=== PATIENT | male | born 1950 | race Caucasian/White ===

== ENCOUNTER 2020-01-01 10:55 | Emergency (ER) | payer OTHER ==
[~2020-01-01] VITALS: Ht 177.8 cm; Wt 77.1 kg
[2020-01-01] MEDS ORDERED: TETANUS,DIPTH,PERTUSS P/F (BOOSTRIX) 0.5 ML VIAL IM ONE (11:15)
[2020-01-01 11:20] LABS: HEMOGLOBIN 14.4 G/DL (13.3-17.7); MEAN PLATELET VOLUME 9.6 FL (7.4-10.4); RED CELL DISTRIBUTION WIDTH 13.5 % (10.0-14.5); WHITE BLOOD COUNT 10.3 10^3/uL (4.3-11.0)
[2020-01-01 11:23] LABS: CHLORIDE 109 MMOL/L (98-107); POTASSIUM 3.8 MMOL/L (3.6-5.0); SODIUM 139 MMOL/L (135-145)
[2020-01-01 11:24] LABS: CALCIUM 9.7 MG/DL (8.5-10.1)
[2020-01-01 11:26] LABS: GLUCOSE 114 MG/DL (70-105); TOTAL PROTEIN 7.2 GM/DL (6.4-8.2)
[2020-01-01 11:27] LABS: BILIRUBIN,TOTAL 0.9 MG/DL (0.1-1.0); CARBON DIOXIDE 20 MMOL/L (21-32)
[2020-01-01 11:29] LABS: ALKALINE PHOSPHATASE 65 U/L (40-136); CREATININE SERUM 0.94 MG/DL (0.60-1.30); GFR ESTIMATED > 60
[2020-01-01 11:30] LABS: BUN/CREATININE RATIO 19
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
[2020-01-01 11:31] LABS: BILIRUBIN,DIRECT 0.3 MG/DL (0.0-0.3); BILIRUBIN,INDIRECT 0.6 MG/DL
[2020-01-01 11:32] LABS: ALANINE AMINOTRANSFERASE 17 U/L (0-55)
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
[2020-01-01] MEDS ORDERED: IOHEXOL 350 MG/ML 100 ML (OMNIPAQUE 350) VIAL IV ONE (12:00)
[2020-01-01] MEDS ORDERED: NS 100 ML (IVPB) BAG IV ONE (12:00)
[2020-01-01] MEDS ORDERED: HOLD METFORMIN - RECEIVED CONTRAST 20 ML VIAL IV SCH (12:00)
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
--- OUTSIDE RECORDS SUMMARY | 2020-01-01 12:52 | XMS REPORT | Clinical Summary ---
Author Author Admin, Ken Walsh [employer]prospe[employer] Address Unknown Phone Unavailable Allergies, Adverse Reactions, Alerts Allergy Name Reaction Description Start Date Severity Status Pr ovider VERAPAMIL Critical Active Crispin العلي on SERTRALINE HCL Critical Active Crispin drake MD IBUPROFEN Critical Active Crispin العلي on NICOTINE STEP 1 Critical Active Crispin valerio MD NAPROXEN SODIUM Critical Active Crispin valerio MD SUDAFED Critical Active Crispin mcmahon MD Conditions or Problems Problem Name Problem Code Onset Date Status Entry Date Provider Comment Standard Description Annotate Renal calculus 592.0 Active Crispin Smith MD Calculus of kidney [facility] Active Crispin Smith MD Hypertrophy (benign) of prostate without urinary obstruction and other lower urinary tract (LUTS) Incomplete Bladder Emptying Active Crispin Smith MD Retention of urine, unspecified Inguinal hernia, left 550.90 Active Rick reyes MD Unilateral or unspecified inguinal hernia, without mention of obstruction or gangrene (not specified as recurrent) Body Mass Index 25.0-25.9 Adult Refinement 2017 Crispin Smith MD Body Mass Index 25.0-25.9, adult BMI 24-24.9 Active Crispin Smith MD Body Mass Index 25.0-25.9, adult Encounter for screening for malignant neoplasm of colon Active Rick Cutler MD Screening for malignant neopla sms of colon Medication List Medication Instructions Start Date Stop Date Generic Name NDC Status Provider Patient Instruction CYPROHEPTADINE HCL 4 MG ORAL TABLET 1/2 tab by mouth at bedt melissa fpr frequency CYPROHEPTADINE HCL 33739995156 No Longer Active Rick Cutler MD Active VITAMIN D (CHOLECALCIFEROL) 1000 UNIT ORAL CAPSULE 1 cap by mouth daily CHOLECALCIFEROL 95541187539 Active Crispin Smith MD Active HYDROCHLOROTHIAZIDE 25 MG ORAL TABLET 1/2 tablet by mouth daily HYDROCHLOROTHIAZIDE 58579435990 No Longer Active Crispin Smith MD Active BACLOFEN 10 MG ORAL TABLET 1 tab by mouth three times daily BACLOFEN 74544343298 Active Crispin Smith MD Active TEGRETOL-XR 200 MG ORAL TABLET EXTENDED RELEASE 12 CHRISTIANO R 1 tab by mouth twice daily CARBAMAZEPINE 83937946247 Active Crispni Smith MD Active LORATADINE 10 MG ORAL TABLET 1 tablet by mouth daily LORATADINE 31182093252 Active Crispin Smith MD Active CITALOPRAM HYDROBROMIDE 10 MG ORAL TABLET 1 qDay CITALOPRAM HYDROBROMIDE 36403607703 No Longer Active Crispin Smith MD Active GABAPENTIN 300 MG ORAL CAPSULE by mouth twice a day GABAPENTIN 75813074016 Active Rick Cutler MD Active FLOMAX 0.4 MG ORAL CAPSULE 1 Daily TAMSULOSI N HCL 26572595849 No Longer Active Cripsin Smith MD Active LISINOPRIL 20 MG ORAL TABLET 1 tablet by mouth daily LISINOPRIL 51112198247 Active Crispin Smith MD Active ALPRAZOLAM 0.25 MG ORAL TABLET 1 tablet by mouth twice a day as needed for stress ALPRAZOLAM 45896275797 Active Crispin Smith MD Active FLOMAX 0.4 MG ORAL CAPSULE 1 Daily F MADINA 0.4 MG ORAL CAPSULE 550171 TAMSULOSIN HCL Inactive CITALOPRAM HYDROBROMIDE 10 MG ORAL TABLET 1 qDay CITALOPRAM HYDROBROMIDE 10 MG ORAL TABLET 871770 CITALOPRAM HYDROBR OMIDE Inactive HYDROCHLOROTHIAZIDE 25 MG ORAL TABLET 1/2 tablet by mouth daily HYDROCHLOROTHIAZIDE 25 MG ORAL TABLET 313700 HYDROCHLOR OTHIAZIDE Inactive CYPROHEPTADINE HCL 4 MG ORAL TABLET 1/2 tab by mouth at bedt melissa fpr frequency CYPROHEPTADINE HCL 4 MG ORAL TABLET 815304 CYPROHEPTADINE HCL Inactive Encounters Code Encounter Date Provider Facility CPT-20964 Level 3 Est. Patient 20:05:12 CDT Crispin valerio MD [facility] CPT-17822 Level 3 Est. Patient 19:42:30 CDT Crispin valerio MD [facility] CPT-93308 Level 4 Est. Patient 14:47:35 CDT Rick singh MD [facility] CPT-21929 Level 2 Est. Patient 15:53:54 CDT Crispin valerio MD [facility] CPT-82603 Level 3 Est. Patient 20:49:21 CDT Crispin valerio MD [facility] Procedures Code Procedure Name Date Entry Date Standard Desc ription CPT-23173 Abdomen, 1 view 11:25:17 CDT CPT-78474 No Charge Offi Visit 12:45:26 CDT 3 CPT-86809 Postop F/U Visit 12:24:03 CDT CPT-48455 Abdomen, 1 view 10:02:40 CDT CPT-15923 Postop F/U Visit 17:29:32 CDT CPT-94335 Abdomen, 1 view 13:47:34 CDT CPT-52173 Abdomen, 1 view 13:56:21 CDT CPT-63586 Postop F/U Visit 10:40:02 CDT CPT-71758 Bladder Scan 15:53:55 CDT CPT-19584 Bladder Scan 10:11:31 CDT CPT-53951 Postop F/U Visit 10:11:30 CDT CPT-59240 Cystoscopy 20:49:21 CDT CPT-38993 Abd single AP View - XRAY USE ONLY 12:03:21 CDT
--- OUTSIDE RECORDS SUMMARY | 2020-01-01 12:52 | XMS REPORT | Clinical Summary ---
Author Author Admin, Ken Walsh [employer] Address Unknown Phone Unavailable Allergies, Adverse Reactions, [...] at bedt melissa fpr frequency CYPROHEPTADINE HCL 41618958012 No Longer Active Rick Cutler MD Active VITAMIN D (CHOLECALCIFEROL) 1000 UNIT ORAL CAPSULE 1 cap by mouth daily CHOLECALCIFEROL 03203264259 Active Crispin Smith MD Active HYDROCHLOROTHIAZIDE 25 MG ORAL TABLET 1/2 tablet by mouth daily HYDROCHLOROTHIAZIDE 48757230386 No Longer Active Crispin Smith MD Active BACLOFEN 10 MG ORAL TABLET 1 tab by mouth three times daily BACLOFEN 54305743978 Active Crispin Smith MD Active TEGRETOL-XR 200 MG ORAL TABLET EXTENDED RELEASE 12 CHRISTIANO R 1 tab by mouth twice daily CARBAMAZEPINE 37359378734 Active Crispin Smith MD Active LORATADINE 10 MG ORAL TABLET 1 tablet by mouth daily LORATADINE 33223314040 Active Crispin Smith MD Active CITALOPRAM HYDROBROMIDE 10 MG ORAL TABLET 1 qDay CITALOPRAM HYDROBROMIDE 35149938499 No Longer Active Crispin Smith MD Active GABAPENTIN 300 MG ORAL CAPSULE by mouth twice a day GABAPENTIN 74836994844 Active Rick Cutler MD Active FLOMAX 0.4 MG ORAL CAPSULE 1 Daily TAMSULOSI N HCL 72076602259 No Longer Active Crispin Smith MD Active LISINOPRIL 20 MG ORAL TABLET 1 tablet by mouth daily LISINOPRIL 16964638191 Active Crispin Smith MD Active ALPRAZOLAM 0.25 MG ORAL TABLET 1 tablet by mouth twice a day as needed for stress ALPRAZOLAM 90514932547 Active Crispin Smith MD Active FLOMAX 0.4 MG ORAL CAPSULE 1 Daily F MADINA 0.4 MG ORAL CAPSULE 329250 TAMSULOSIN HCL Inactive CITALOPRAM HYDROBROMIDE 10 MG ORAL TABLET 1 qDay CITALOPRAM HYDROBROMIDE 10 MG ORAL TABLET 703029 CITALOPRAM HYDROBR OMIDE Inactive HYDROCHLOROTHIAZIDE 25 MG ORAL TABLET 1/2 tablet by mouth daily HYDROCHLOROTHIAZIDE 25 MG ORAL TABLET 288470 HYDROCHLOR OTHIAZIDE Inactive CYPROHEPTADINE HCL 4 MG ORAL TABLET 1/2 tab by mouth at bedt melissa fpr frequency CYPROHEPTADINE HCL 4 MG ORAL TABLET 966167 CYPROHEPTADINE HCL Inactive Vital Signs Date Name Value Unit Range Description blood pressure, diastolic, repeated by physician 94 BP funk blood pressure, diastolic 94 mm[Hg] BP funk blood pressure, systolic, repeated by physician 156 BP sys blood pressure, systolic 156 mm[Hg] BP sys height E&M 69 [in_us] Bdy height pulse rate E&M 86 /min Heart rate temperature E&M 96.7 [degF] Body temp erature weight E&M 168.20 [lb_av] Weight Measure d Encounters Code Encounter Date Provider Facility CPT-20401 Level 3 Est. Patient 20:05:12 CDT Crispin valerio MD [facility] CPT-65073 Level 3 Est. Patient 19:42:30 CDT Crispin valerio MD [facility] CPT-91713 Level 4 Est. Patient 14:47:35 CDT iRck singh MD [facility] CPT-82624 Level 2 Est. Patient 15:53:54 CDT Crispin valerio MD [facility] CPT-19827 Level 3 Est. Patient 20:49:21 CDT Crispin valerio MD [facility] Procedures Code Procedure Name Date Entry Date Standard Desc ription CPT-95515 Abdomen, 1 view 11:25:17 CDT CPT-38702 No Charge Offi Visit 12:45:26 CDT 3 CPT-86731 Postop F/U Visit 12:24:03 CDT CPT-22464 Abdomen, 1 view 10:02:40 CDT CPT-12449 Postop F/U Visit 17:29:32 CDT CPT-44156 Abdomen, 1 view 13:47:34 CDT CPT-34367 Abdomen, 1 view 13:56:21 CDT CPT-47409 Postop F/U Visit 10:40:02 CDT CPT-57830 Bladder Scan 15:53:55 CDT CPT-91626 Bladder Scan 10:11:31 CDT CPT-12233 Postop F/U Visit 10:11:30 CDT CPT-70559 Cystoscopy 20:49:21 CDT CPT-73595 Abd single AP View - XRAY USE ONLY 12:03:21 CDT
--- OUTSIDE RECORDS SUMMARY | 2020-01-01 12:52 | XMS REPORT | Clinical Summary ---
Author Author Admin, Ken Walsh [email or web address] Address Unknown Phone Unavailable Allergies, Adverse Reactions, [...] as recurrent) Body Mass Index 25.0-25.9 Adult Active 2017 Crispin Smith MD Body Mass Index 25.0-25.9, adult Encounter for screening for malignant neoplasm of colon Active Rick Cutler MD Screening for malignant neopla sms of colon Medication List Medication Instructions Start Date Stop Date Generic Name NDC Status Provider Patient Instruction CYPROHEPTADINE HCL 4 MG ORAL TABLET 1/2 tab by mouth at bedt melissa fpr frequency CYPROHEPTADINE HCL 81485439436 No Longer Active Rick Cutler MD Active VITAMIN D (CHOLECALCIFEROL) 1000 UNIT ORAL CAPSULE 1 cap by mouth daily CHOLECALCIFEROL 74776960561 Active Crispin Smith MD Active HYDROCHLOROTHIAZIDE 25 MG ORAL TABLET 1/2 tablet by mouth daily HYDROCHLOROTHIAZIDE 48953775751 No Longer Active Crispin Smith MD Active BACLOFEN 10 MG ORAL TABLET 1 tab by mouth three times daily BACLOFEN 08965239905 Active Crispin Smith MD Active TEGRETOL-XR 200 MG ORAL TABLET EXTENDED RELEASE 12 CHRISTIANO R 1 tab by mouth twice daily CARBAMAZEPINE 99035193832 Active Crispin Smith MD Active LORATADINE 10 MG ORAL TABLET 1 tablet by mouth daily LORATADINE 08474356775 Active Crispin Smith MD Active CITALOPRAM HYDROBROMIDE 10 MG ORAL TABLET 1 qDay CITALOPRAM HYDROBROMIDE 01536617306 No Longer Active Crispin Smith MD Active GABAPENTIN 300 MG ORAL CAPSULE by mouth twice a day GABAPENTIN 37966529675 Active Rick Cutler MD Active FLOMAX 0.4 MG ORAL CAPSULE 1 Daily TAMSULOSI N HCL 65300200139 No Longer Active Crispin Smith MD Active LISINOPRIL 20 MG ORAL TABLET 1 tablet by mouth daily LISINOPRIL 15323360609 Active Crispin Smith MD Active ALPRAZOLAM 0.25 MG ORAL TABLET 1 tablet by mouth twice a day as needed for stress ALPRAZOLAM 40971718012 Active Crispin Smith MD Active FLOMAX 0.4 MG ORAL CAPSULE 1 Daily F MADINA 0.4 MG ORAL CAPSULE 969780 TAMSULOSIN HCL Inactive CITALOPRAM HYDROBROMIDE 10 MG ORAL TABLET 1 qDay CITALOPRAM HYDROBROMIDE 10 MG ORAL TABLET 893179 CITALOPRAM HYDROBR OMIDE Inactive HYDROCHLOROTHIAZIDE 25 MG ORAL TABLET 1/2 tablet by mouth daily HYDROCHLOROTHIAZIDE 25 MG ORAL TABLET 090743 HYDROCHLOR OTHIAZIDE Inactive CYPROHEPTADINE HCL 4 MG ORAL TABLET 1/2 tab by mouth at bedt melissa fpr frequency CYPROHEPTADINE HCL 4 MG ORAL TABLET 846237 CYPROHEPTADINE HCL Inactive Encounters Code Encounter Date Provider Facility CPT-53219 Level 3 Est. Patient 19:42:30 CDT Crispin valerio MD [facility] CPT-48934 Level 4 Est. Patient 14:47:35 CDT Rick singh MD [facility] CPT-58558 Level 2 Est. Patient 15:53:54 CDT Crispin valerio MD [facility] CPT-01578 Level 3 Est. Patient 20:49:21 CDT Crispin valerio [facility] Procedures Code Procedure Name Date Entry Date Standard Desc ription CPT-24469 Abdomen, 1 view 11:25:17 CDT CPT-00466 No Charge Offi Visit 12:45:26 CDT 3 CPT-72713 Postop F/U Visit 12:24:03 CDT CPT-26158 Abdomen, 1 view 10:02:40 CDT CPT-16168 Postop F/U Visit 17:29:32 CDT CPT-18320 Abdomen, 1 view 13:47:34 CDT CPT-91122 Abdomen, 1 view 13:56:21 CDT CPT-28977 Postop F/U Visit 10:40:02 CDT CPT-83307 Bladder Scan 15:53:55 CDT CPT-99014 Bladder Scan 10:11:31 CDT CPT-34060 Postop F/U Visit 10:11:30 CDT CPT-78639 Cystoscopy 20:49:21 CDT CPT-36039 Abd single AP View - XRAY USE ONLY 12:03:21 CDT
--- OUTSIDE RECORDS SUMMARY | 2020-01-01 12:52 | XMS REPORT | Clinical Summary ---
Author Author Admin, Ken Walsh [employer] Address Unknown Phone Unavailable Allergies, Adverse Reactions, Alerts Allergy Name Reaction Description Start Date Severity Status Pr ovider VERAPAMIL Critical Active Crispin العلي on SERTRALINE HCL Critical Active Crispin drake MD IBUPROFEN Critical Active Crispin العلي on NICOTINE STEP 1 Critical Active Crispin valerio MD NAPROXEN SODIUM Critical Active Cripsin valerio MD SUDAFED Critical Active Crispin mcmahon [...] at bedt melissa fpr frequency CYPROHEPTADINE HCL 52653955488 No Longer Active Rick Cutler MD Active VITAMIN D (CHOLECALCIFEROL) 1000 UNIT ORAL CAPSULE 1 cap by mouth daily CHOLECALCIFEROL 09662156114 Active Crispin Smith MD Active HYDROCHLOROTHIAZIDE 25 MG ORAL TABLET 1/2 tablet by mouth daily HYDROCHLOROTHIAZIDE 90190453027 No Longer Active Crispin Smith MD Active BACLOFEN 10 MG ORAL TABLET 1 tab by mouth three times daily BACLOFEN 88291717134 Active Crispin Smith MD Active TEGRETOL-XR 200 MG ORAL TABLET EXTENDED RELEASE 12 CHRISTIANO R 1 tab by mouth twice daily CARBAMAZEPINE 51123069547 Active Crispin Smith MD Active LORATADINE 10 MG ORAL TABLET 1 tablet by mouth daily LORATADINE 76661605179 Active Crispin Smith MD Active CITALOPRAM HYDROBROMIDE 10 MG ORAL TABLET 1 qDay CITALOPRAM HYDROBROMIDE 62753491865 No Longer Active Crispin Smith MD Active GABAPENTIN 300 MG ORAL CAPSULE by mouth twice a day GABAPENTIN 62842885995 Active Rick Cutler MD Active FLOMAX 0.4 MG ORAL CAPSULE 1 Daily TAMSULOSI N HCL 14540770059 No Longer Active Crispin Smith MD Active LISINOPRIL 20 MG ORAL TABLET 1 tablet by mouth daily LISINOPRIL 13021460580 Active Crispin Smith MD Active ALPRAZOLAM 0.25 MG ORAL TABLET 1 tablet by mouth twice a day as needed for stress ALPRAZOLAM 72842772506 Active Crispin Smith MD Active FLOMAX 0.4 MG ORAL CAPSULE 1 Daily F MADINA 0.4 MG ORAL CAPSULE 061230 TAMSULOSIN HCL Inactive CITALOPRAM HYDROBROMIDE 10 MG ORAL TABLET 1 qDay CITALOPRAM HYDROBROMIDE 10 MG ORAL TABLET 971293 CITALOPRAM HYDROBR OMIDE Inactive HYDROCHLOROTHIAZIDE 25 MG ORAL TABLET 1/2 tablet by mouth daily HYDROCHLOROTHIAZIDE 25 MG ORAL TABLET 788579 HYDROCHLOR OTHIAZIDE Inactive CYPROHEPTADINE HCL 4 MG ORAL TABLET 1/2 tab by mouth at bedt melissa fpr frequency CYPROHEPTADINE HCL 4 MG ORAL TABLET 847099 CYPROHEPTADINE HCL Inactive Vital Signs Date Name [...] d Encounters Code Encounter Date Provider Facility CPT-93460 Level 3 Est. Patient 20:05:12 CDT Crispin valerio MD [facility] CPT-96389 Level 3 Est. Patient 19:42:30 CDT Crispin valerio MD [facility] CPT-87830 Level 4 Est. Patient 14:47:35 CDT Rick singh MD [facility] CPT-92730 Level 2 Est. Patient 15:53:54 CDT Crispin valerio MD [facility] CPT-16202 Level 3 Est. Patient 20:49:21 CDT Crispin valerio MD [facility] Procedures Code Procedure Name Date Entry Date Standard Desc ription CPT-49667 Abdomen, 1 view 11:25:17 CDT CPT-03509 No Charge Offi Visit 12:45:26 CDT 3 CPT-02049 Postop F/U Visit 12:24:03 CDT CPT-82788 Abdomen, 1 view 10:02:40 CDT CPT-26687 Postop F/U Visit 17:29:32 CDT CPT-87238 Abdomen, 1 view 13:47:34 CDT CPT-75799 Abdomen, 1 view 13:56:21 CDT CPT-41725 Postop F/U Visit 10:40:02 CDT CPT-80411 Bladder Scan 15:53:55 CDT CPT-73614 Bladder Scan 10:11:31 CDT CPT-63624 Postop F/U Visit 10:11:30 CDT CPT-33241 Cystoscopy 20:49:21 CDT CPT-18494 Abd single AP View - XRAY USE ONLY 12:03:21 CDT
--- OUTSIDE RECORDS SUMMARY | 2020-01-01 12:52 | XMS REPORT | Clinical Summary ---
Author Author Admin, Ken Walsh [employer] Address Unknown Phone Unavailable Allergies, Adverse Reactions, [...] at bedt melissa fpr frequency CYPROHEPTADINE HCL 60022048330 No Longer Active Rick Cutler MD Active VITAMIN D (CHOLECALCIFEROL) 1000 UNIT ORAL CAPSULE 1 cap by mouth daily CHOLECALCIFEROL 13757058944 Active Crispin Smith MD Active HYDROCHLOROTHIAZIDE 25 MG ORAL TABLET 1/2 tablet by mouth daily HYDROCHLOROTHIAZIDE 97161973615 No Longer Active Crispin Smith MD Active BACLOFEN 10 MG ORAL TABLET 1 tab by mouth three times daily BACLOFEN 35010613369 Active Crispin Smith MD Active TEGRETOL-XR 200 MG ORAL TABLET EXTENDED RELEASE 12 CHRISTIANO R 1 tab by mouth twice daily CARBAMAZEPINE 95261677893 Active Crispin Smith MD Active LORATADINE 10 MG ORAL TABLET 1 tablet by mouth daily LORATADINE 13426824433 Active Crispin Smith MD Active CITALOPRAM HYDROBROMIDE 10 MG ORAL TABLET 1 qDay CITALOPRAM HYDROBROMIDE 75063011629 No Longer Active Crispin Smith MD Active GABAPENTIN 300 MG ORAL CAPSULE by mouth twice a day GABAPENTIN 98028071751 Active Rick Cutler MD Active FLOMAX 0.4 MG ORAL CAPSULE 1 Daily TAMSULOSI N HCL 59326616251 No Longer Active Crispin Smith MD Active LISINOPRIL 20 MG ORAL TABLET 1 tablet by mouth daily LISINOPRIL 79658789369 Active Crispin Smith MD Active ALPRAZOLAM 0.25 MG ORAL TABLET 1 tablet by mouth twice a day as needed for stress ALPRAZOLAM 62956424871 Active Crispin Smith MD Active FLOMAX 0.4 MG ORAL CAPSULE 1 Daily F MADINA 0.4 MG ORAL CAPSULE 770544 TAMSULOSIN HCL Inactive CITALOPRAM HYDROBROMIDE 10 MG ORAL TABLET 1 qDay CITALOPRAM HYDROBROMIDE 10 MG ORAL TABLET 274840 CITALOPRAM HYDROBR OMIDE Inactive HYDROCHLOROTHIAZIDE 25 MG ORAL TABLET 1/2 tablet by mouth daily HYDROCHLOROTHIAZIDE 25 MG ORAL TABLET 055871 HYDROCHLOR OTHIAZIDE Inactive CYPROHEPTADINE HCL 4 MG ORAL TABLET 1/2 tab by mouth at bedt melissa fpr frequency CYPROHEPTADINE HCL 4 MG ORAL TABLET 559184 CYPROHEPTADINE HCL Inactive Encounters Code Encounter Date Provider Facility CPT-44939 Level 3 Est. Patient 20:05:12 CDT Crispin valerio MD [facility] CPT-88636 Level 3 Est. Patient 19:42:30 CDT Crispin valerio MD [facility] CPT-56975 Level 4 Est. Patient 14:47:35 CDT Rick singh MD [facility] CPT-52602 Level 2 Est. Patient 15:53:54 CDT Crispin valerio MD [facility] CPT-19406 Level 3 Est. Patient 20:49:21 CDT Crispin valerio MD [facility] Procedures Code Procedure Name Date Entry Date Standard Desc ription CPT-73848 Abdomen, 1 view 11:25:17 CDT CPT-16019 No Charge Offi Visit 12:45:26 CDT 3 CPT-75089 Postop F/U Visit 12:24:03 CDT CPT-06787 Abdomen, 1 view 10:02:40 CDT CPT-48626 Postop F/U Visit 17:29:32 CDT CPT-60166 Abdomen, 1 view 13:47:34 CDT CPT-54375 Abdomen, 1 view 13:56:21 CDT CPT-19301 Postop F/U Visit 10:40:02 CDT CPT-72215 Bladder Scan 15:53:55 CDT CPT-57780 Bladder Scan 10:11:31 CDT CPT-60512 Postop F/U Visit 10:11:30 CDT CPT-02902 Cystoscopy 20:49:21 CDT CPT-13265 Abd single AP View - XRAY USE ONLY 12:03:21 CDT
--- OUTSIDE RECORDS SUMMARY | 2020-01-01 12:52 | XMS REPORT | Clinical Summary ---
Author Author Admin, Ken Walsh [employer] Address Unknown Phone Unavailable Allergies, Adverse Reactions, [...] at bedt melissa fpr frequency CYPROHEPTADINE HCL 79541755796 No Longer Active Rick Cutler MD Active VITAMIN D (CHOLECALCIFEROL) 1000 UNIT ORAL CAPSULE 1 cap by mouth daily CHOLECALCIFEROL 32816529493 Active Crispin Smith MD Active HYDROCHLOROTHIAZIDE 25 MG ORAL TABLET 1/2 tablet by mouth daily HYDROCHLOROTHIAZIDE 77864129020 No Longer Active Crispin Smith MD Active BACLOFEN 10 MG ORAL TABLET 1 tab by mouth three times daily BACLOFEN 67708196660 Active Crispin Smith MD Active TEGRETOL-XR 200 MG ORAL TABLET EXTENDED RELEASE 12 CHRISTIANO R 1 tab by mouth twice daily CARBAMAZEPINE 42024751155 Active Crispin Smith MD Active LORATADINE 10 MG ORAL TABLET 1 tablet by mouth daily LORATADINE 35313192788 Active Crispin Smith MD Active CITALOPRAM HYDROBROMIDE 10 MG ORAL TABLET 1 qDay CITALOPRAM HYDROBROMIDE 08710846020 No Longer Active Crispin Smith MD Active GABAPENTIN 300 MG ORAL CAPSULE by mouth twice a day GABAPENTIN 38995498725 Active Rick Cutler MD Active FLOMAX 0.4 MG ORAL CAPSULE 1 Daily TAMSULOSI N HCL 64866976478 No Longer Active Crispin Smith MD Active LISINOPRIL 20 MG ORAL TABLET 1 tablet by mouth daily LISINOPRIL 37114164718 Active Crispin Smith MD Active ALPRAZOLAM 0.25 MG ORAL TABLET 1 tablet by mouth twice a day as needed for stress ALPRAZOLAM 65111264534 Active Crispin Smith MD Active FLOMAX 0.4 MG ORAL CAPSULE 1 Daily F MADINA 0.4 MG ORAL CAPSULE 092943 TAMSULOSIN HCL Inactive CITALOPRAM HYDROBROMIDE 10 MG ORAL TABLET 1 qDay CITALOPRAM HYDROBROMIDE 10 MG ORAL TABLET 386349 CITALOPRAM HYDROBR OMIDE Inactive HYDROCHLOROTHIAZIDE 25 MG ORAL TABLET 1/2 tablet by mouth daily HYDROCHLOROTHIAZIDE 25 MG ORAL TABLET 105160 HYDROCHLOR OTHIAZIDE Inactive CYPROHEPTADINE HCL 4 MG ORAL TABLET 1/2 tab by mouth at bedt melissa fpr frequency CYPROHEPTADINE HCL 4 MG ORAL TABLET 097993 CYPROHEPTADINE HCL Inactive Vital Signs Date Name [...] d Encounters Code Encounter Date Provider Facility CPT-47135 Level 3 Est. Patient 20:05:12 CDT Crispin valerio MD [facility] CPT-97997 Level 3 Est. Patient 19:42:30 CDT Crispin valerio MD [facility] CPT-76109 Level 4 Est. Patient 14:47:35 CDT Rick singh MD [facility] CPT-06765 Level 2 Est. Patient 15:53:54 CDT Crispin valerio MD [facility] CPT-25885 Level 3 Est. Patient 20:49:21 CDT Crispin valerio MD [facility] Procedures Code Procedure Name Date Entry Date Standard Desc ription CPT-53634 Abdomen, 1 view 11:25:17 CDT CPT-75810 No Charge Offi Visit 12:45:26 CDT 3 CPT-15374 Postop F/U Visit 12:24:03 CDT CPT-90057 Abdomen, 1 view 10:02:40 CDT CPT-63604 Postop F/U Visit 17:29:32 CDT CPT-73843 Abdomen, 1 view 13:47:34 CDT CPT-60052 Abdomen, 1 view 13:56:21 CDT CPT-76470 Postop F/U Visit 10:40:02 CDT CPT-35627 Bladder Scan 15:53:55 CDT CPT-04414 Bladder Scan 10:11:31 CDT CPT-46863 Postop F/U Visit 10:11:30 CDT CPT-19301 Cystoscopy 20:49:21 CDT CPT-74788 Abd single AP View - XRAY USE ONLY 12:03:21 CDT
--- OUTSIDE RECORDS SUMMARY | 2020-01-01 12:52 | XMS REPORT | Clinical Summary ---
Author Author Admin, Ken Walsh [employer] Address Unknown Phone Unavailable Allergies, Adverse Reactions, [...] at bedt melissa fpr frequency CYPROHEPTADINE HCL 00180992655 No Longer Active Rick Cutler MD Active VITAMIN D (CHOLECALCIFEROL) 1000 UNIT ORAL CAPSULE 1 cap by mouth daily CHOLECALCIFEROL 83612172126 Active Crispin Smith MD Active HYDROCHLOROTHIAZIDE 25 MG ORAL TABLET 1/2 tablet by mouth daily HYDROCHLOROTHIAZIDE 38085146933 No Longer Active Crispin Smith MD Active BACLOFEN 10 MG ORAL TABLET 1 tab by mouth three times daily BACLOFEN 97896161999 Active Crispin Smith MD Active TEGRETOL-XR 200 MG ORAL TABLET EXTENDED RELEASE 12 CHRISTIANO R 1 tab by mouth twice daily CARBAMAZEPINE 91494828087 Active Crispin Smith MD Active LORATADINE 10 MG ORAL TABLET 1 tablet by mouth daily LORATADINE 95838201364 Active Crispin Smith MD Active CITALOPRAM HYDROBROMIDE 10 MG ORAL TABLET 1 qDay CITALOPRAM HYDROBROMIDE 29679487337 No Longer Active Crispin Smith MD Active GABAPENTIN 300 MG ORAL CAPSULE by mouth twice a day GABAPENTIN 11534977626 Active Rick Cutler MD Active FLOMAX 0.4 MG ORAL CAPSULE 1 Daily TAMSULOSI N HCL 53739253920 No Longer Active Crispin Smith MD Active LISINOPRIL 20 MG ORAL TABLET 1 tablet by mouth daily LISINOPRIL 81279271409 Active Crispin Smith MD Active ALPRAZOLAM 0.25 MG ORAL TABLET 1 tablet by mouth twice a day as needed for stress ALPRAZOLAM 65616006225 Active Crispin Smith MD Active FLOMAX 0.4 MG ORAL CAPSULE 1 Daily F MADINA 0.4 MG ORAL CAPSULE 903939 TAMSULOSIN HCL Inactive CITALOPRAM HYDROBROMIDE 10 MG ORAL TABLET 1 qDay CITALOPRAM HYDROBROMIDE 10 MG ORAL TABLET 585421 CITALOPRAM HYDROBR OMIDE Inactive HYDROCHLOROTHIAZIDE 25 MG ORAL TABLET 1/2 tablet by mouth daily HYDROCHLOROTHIAZIDE 25 MG ORAL TABLET 288667 HYDROCHLOR OTHIAZIDE Inactive CYPROHEPTADINE HCL 4 MG ORAL TABLET 1/2 tab by mouth at bedt melissa fpr frequency CYPROHEPTADINE HCL 4 MG ORAL TABLET 834872 CYPROHEPTADINE HCL Inactive Vital Signs Date Name [...] d Encounters Code Encounter Date Provider Facility CPT-12989 Level 3 Est. Patient 20:05:12 CDT Crispin valerio MD [facility] CPT-20836 Level 3 Est. Patient 19:42:30 CDT Crispin valerio MD [facility] CPT-66472 Level 4 Est. Patient 14:47:35 CDT Rick singh MD [facility] CPT-05507 Level 2 Est. Patient 15:53:54 CDT Crispin valerio MD [facility] CPT-96870 Level 3 Est. Patient 20:49:21 CDT Crispin valerio MD [facility] Procedures Code Procedure Name Date Entry Date Standard Desc ription CPT-51213 Abdomen, 1 view 11:25:17 CDT CPT-44084 No Charge Offi Visit 12:45:26 CDT 3 CPT-35779 Postop F/U Visit 12:24:03 CDT CPT-09986 Abdomen, 1 view 10:02:40 CDT CPT-27043 Postop F/U Visit 17:29:32 CDT CPT-03648 Abdomen, 1 view 13:47:34 CDT CPT-03931 Abdomen, 1 view 13:56:21 CDT CPT-35985 Postop F/U Visit 10:40:02 CDT CPT-53821 Bladder Scan 15:53:55 CDT CPT-05028 Bladder Scan 10:11:31 CDT CPT-49254 Postop F/U Visit 10:11:30 CDT CPT-71765 Cystoscopy 20:49:21 CDT CPT-16244 Abd single AP View - XRAY USE ONLY 12:03:21 CDT
--- OUTSIDE RECORDS SUMMARY | 2020-01-01 12:52 | XMS REPORT | Clinical Summary ---
Author Author Admin, Ken Walsh [employer] Address Unknown Phone Unavailable Allergies, Adverse Reactions, [...] at bedt melissa fpr frequency CYPROHEPTADINE HCL 49988531287 No Longer Active Rick Cutler MD Active VITAMIN D (CHOLECALCIFEROL) 1000 UNIT ORAL CAPSULE 1 cap by mouth daily CHOLECALCIFEROL 39378327346 Active Crispin Simth MD Active HYDROCHLOROTHIAZIDE 25 MG ORAL TABLET 1/2 tablet by mouth daily HYDROCHLOROTHIAZIDE 40846286582 No Longer Active Crispin Smith MD Active BACLOFEN 10 MG ORAL TABLET 1 tab by mouth three times daily BACLOFEN 64990764878 Active Crispin Smith MD Active TEGRETOL-XR 200 MG ORAL TABLET EXTENDED RELEASE 12 CHRISTIANO R 1 tab by mouth twice daily CARBAMAZEPINE 41016500721 Active Crispin Smith MD Active LORATADINE 10 MG ORAL TABLET 1 tablet by mouth daily LORATADINE 78908090061 Active Crsipin Smith MD Active CITALOPRAM HYDROBROMIDE 10 MG ORAL TABLET 1 qDay CITALOPRAM HYDROBROMIDE 35520112350 No Longer Active Crispin Smith MD Active GABAPENTIN 300 MG ORAL CAPSULE by mouth twice a day GABAPENTIN 88197540655 Active Rick Cutler MD Active FLOMAX 0.4 MG ORAL CAPSULE 1 Daily TAMSULOSI N HCL 04334926175 No Longer Active Crispin Smith MD Active LISINOPRIL 20 MG ORAL TABLET 1 tablet by mouth daily LISINOPRIL 95535483186 Active Crispin Smith MD Active ALPRAZOLAM 0.25 MG ORAL TABLET 1 tablet by mouth twice a day as needed for stress ALPRAZOLAM 52260577287 Active Crispin Smith MD Active FLOMAX 0.4 MG ORAL CAPSULE 1 Daily F MADINA 0.4 MG ORAL CAPSULE 436476 TAMSULOSIN HCL Inactive CITALOPRAM HYDROBROMIDE 10 MG ORAL TABLET 1 qDay CITALOPRAM HYDROBROMIDE 10 MG ORAL TABLET 693937 CITALOPRAM HYDROBR OMIDE Inactive HYDROCHLOROTHIAZIDE 25 MG ORAL TABLET 1/2 tablet by mouth daily HYDROCHLOROTHIAZIDE 25 MG ORAL TABLET 919015 HYDROCHLOR OTHIAZIDE Inactive CYPROHEPTADINE HCL 4 MG ORAL TABLET 1/2 tab by mouth at bedt melissa fpr frequency CYPROHEPTADINE HCL 4 MG ORAL TABLET 671845 CYPROHEPTADINE HCL Inactive Encounters Code Encounter Date Provider Facility CPT-24418 Level 3 Est. Patient 19:42:30 CDT Crispin valerio MD [facility] CPT-05380 Level 4 Est. Patient 14:47:35 CDT Rick singh MD [facility] CPT-33012 Level 2 Est. Patient 15:53:54 CDT Crispin valerio MD [facility] CPT-95038 Level 3 Est. Patient 20:49:21 CDT Crispin valerio [facility] Procedures Code Procedure Name Date Entry Date Standard Desc ription CPT-04148 Abdomen, 1 view 11:25:17 CDT CPT-90394 No Charge Offi Visit 12:45:26 CDT 3 CPT-80164 Postop F/U Visit 12:24:03 CDT CPT-45441 Abdomen, 1 view 10:02:40 CDT CPT-28856 Postop F/U Visit 17:29:32 CDT CPT-70807 Abdomen, 1 view 13:47:34 CDT CPT-54400 Abdomen, 1 view 13:56:21 CDT CPT-87097 Postop F/U Visit 10:40:02 CDT CPT-73474 Bladder Scan 15:53:55 CDT CPT-05468 Bladder Scan 10:11:31 CDT CPT-87245 Postop F/U Visit 10:11:30 CDT CPT-79733 Cystoscopy 20:49:21 CDT CPT-09898 Abd single AP View - XRAY USE ONLY 12:03:21 CDT
--- OUTSIDE RECORDS SUMMARY | 2020-01-01 12:52 | XMS REPORT | Clinical Summary ---
Author Author Admin, Ken Walsh [employer] Address Unknown Phone Unavailable Allergies, Adverse Reactions, [...] at bedt melissa fpr frequency CYPROHEPTADINE HCL 76096261933 No Longer Active Rick Cutler MD Active VITAMIN D (CHOLECALCIFEROL) 1000 UNIT ORAL CAPSULE 1 cap by mouth daily CHOLECALCIFEROL 09650542713 Active Crispin Smith MD Active HYDROCHLOROTHIAZIDE 25 MG ORAL TABLET 1/2 tablet by mouth daily HYDROCHLOROTHIAZIDE 46593975857 No Longer Active Crispin Smith MD Active BACLOFEN 10 MG ORAL TABLET 1 tab by mouth three times daily BACLOFEN 74621933438 Active Crispin Smith MD Active TEGRETOL-XR 200 MG ORAL TABLET EXTENDED RELEASE 12 CHRISTIANO R 1 tab by mouth twice daily CARBAMAZEPINE 93278880774 Active Crispin Smith MD Active LORATADINE 10 MG ORAL TABLET 1 tablet by mouth daily LORATADINE 97788310144 Active Crispin Smith MD Active CITALOPRAM HYDROBROMIDE 10 MG ORAL TABLET 1 qDay CITALOPRAM HYDROBROMIDE 98882035244 No Longer Active Crispin Smith MD Active GABAPENTIN 300 MG ORAL CAPSULE by mouth twice a day GABAPENTIN 12270939516 Active Rick Cutler MD Active FLOMAX 0.4 MG ORAL CAPSULE 1 Daily TAMSULOSI N HCL 62999246950 No Longer Active Crispin Smith MD Active LISINOPRIL 20 MG ORAL TABLET 1 tablet by mouth daily LISINOPRIL 64369353214 Active Crispin Smith MD Active ALPRAZOLAM 0.25 MG ORAL TABLET 1 tablet by mouth twice a day as needed for stress ALPRAZOLAM 58312695533 Active Crispin Smith MD Active FLOMAX 0.4 MG ORAL CAPSULE 1 Daily F MADINA 0.4 MG ORAL CAPSULE 488746 TAMSULOSIN HCL Inactive CITALOPRAM HYDROBROMIDE 10 MG ORAL TABLET 1 qDay CITALOPRAM HYDROBROMIDE 10 MG ORAL TABLET 698651 CITALOPRAM HYDROBR OMIDE Inactive HYDROCHLOROTHIAZIDE 25 MG ORAL TABLET 1/2 tablet by mouth daily HYDROCHLOROTHIAZIDE 25 MG ORAL TABLET 071442 HYDROCHLOR OTHIAZIDE Inactive CYPROHEPTADINE HCL 4 MG ORAL TABLET 1/2 tab by mouth at bedt melissa fpr frequency CYPROHEPTADINE HCL 4 MG ORAL TABLET 154532 CYPROHEPTADINE HCL Inactive Vital Signs Date Name Value Unit Range Description blood pressure, diastolic, repeated by physician 100 BP funk blood pressure, diastolic 100 mm[Hg] BP funk blood pressure, systolic, repeated by physician 133 BP sys blood pressure, systolic 133 mm[Hg] BP sys height E&M 69 [in_us] Bdy height pulse rate E&M 86 /min Heart rate temperature E&M 98.3 [degF] Body temp erature weight E&M 168.50 [lb_av] Weight Measure d blood pressure, diastolic 87 mm[Hg] BP funk blood pressure, systolic 105 mm[Hg] BP sys height E&M 69 [in_us] Bdy height pulse rate E&M 82 /min Heart rate temperature E&M 98.4 [degF] Body temp erature weight E&M 166.31 [lb_av] Weight Measure d blood pressure, diastolic 85 mm[Hg] BP funk blood pressure, systolic 128 mm[Hg] BP sys height E&M 69 [in_us] Bdy height pulse rate E&M 90 /min Heart rate temperature E&M 98.2 [degF] Body temp erature weight E&M 169 [lb_av] Weight Measure d blood pressure, diastolic, repeated by physician 84 BP funk blood pressure, diastolic 84 mm[Hg] BP funk blood pressure, systolic, repeated by physician 140 BP sys blood pressure, systolic 140 mm[Hg] BP sys height E&M 69 [in_us] Bdy height pulse rate E&M 79 /min Heart rate temperature E&M 97.5 [degF] Body temp erature weight E&M 167.31 [lb_av] Weight Measure d blood pressure, diastolic 86 mm[Hg] BP funk blood pressure, systolic 125 mm[Hg] BP sys height E&M 69 [in_us] Bdy height pulse rate E&M 84 /min Heart rate temperature E&M 98.3 [degF] Body temp erature weight E&M 158.5 [lb_av] Weight Measure d blood pressure, diastolic 88 mm[Hg] BP funk blood pressure, systolic 118 mm[Hg] BP sys height E&M 69 [in_us] Bdy height pulse rate E&M 83 /min Heart rate temperature E&M 98.3 [degF] Body temp erature weight E&M 159 [lb_av] Weight Measure d blood pressure, diastolic 92 mm[Hg] BP funk blood pressure, systolic 130 mm[Hg] BP sys pulse rate E&M 79 /min Heart rate temperature E&M 98.3 [degF] Body temp erature weight E&M 159 [lb_av] Weight Measure d Diagnostic Results Date Name Value Unit Range Description Office Visit: CN-kidney stone - 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 RBC, urine, dipstick 3+ protein, total urine random 1+ mg/dL Office Visit: CN-kidney stone - Urinaly sis pH, urine, semiquantitative 5.0 specific gravity, urine 1.005 urinalysis, routine Clean Catch ketones, urine, by test strip negative bilirubin, urine negative glucose, urine, semiquantitative negative urine color yellow appearance, urine clear leukocyte esterase, urine, by dipstick 2+ nitrite, urine, semiquantitative negative urobilinogen, urine, semiquantitative (dipstick) 0.2 protein, urine, semiquantitative (dipstick) 1+ Encounters Code Encounter Date Provider Facility CPT-45075 Level 3 Est. Patient 19:42:30 CDT Crispin valerio MD [facility] CPT-04687 Level 4 Est. Patient 14:47:35 CDT Rick singh MD [facility] CPT-51467 Level 2 Est. Patient 15:53:54 CDT Crispin valerio MD [facility] CPT-06497 Level 3 Est. Patient 20:49:21 CDT Crispin valerio MD [facility] Procedures Code Procedure Name Date Entry Date Standard Desc ription CPT-97658 No Charge Offi Visit 12:45:26 CDT 3 CPT-15320 Postop F/U Visit 12:24:03 CDT CPT-33600 Abdomen, 1 view 10:02:40 CDT CPT-28551 Postop F/U Visit 17:29:32 CDT CPT-77910 Abdomen, 1 view 13:47:34 CDT CPT-21721 Abdomen, 1 view 13:56:21 CDT CPT-05017 Postop F/U Visit 10:40:02 CDT CPT-24775 Bladder Scan 15:53:55 CDT CPT-92735 Bladder Scan 10:11:31 CDT CPT-35186 Postop F/U Visit 10:11:30 CDT CPT-33165 Cystoscopy 20:49:21 CDT CPT-20584 Abd single AP View - XRAY USE ONLY 12:03:21 CDT
--- OUTSIDE RECORDS SUMMARY | 2020-01-01 12:53 | XMS REPORT | Clinical Summary ---
Author Author Admin, Ken Walsh [employer] Address Unknown Phone Unavailable Allergies, Adverse Reactions, [...] at bedt melissa fpr frequency CYPROHEPTADINE HCL 51500902952 No Longer Active Rick Cutler MD Active VITAMIN D (CHOLECALCIFEROL) 1000 UNIT ORAL CAPSULE 1 cap by mouth daily CHOLECALCIFEROL 30546837152 Active Crispin Smith MD Active HYDROCHLOROTHIAZIDE 25 MG ORAL TABLET 1/2 tablet by mouth daily HYDROCHLOROTHIAZIDE 62917362309 No Longer Active Crispin Smith MD Active BACLOFEN 10 MG ORAL TABLET 1 tab by mouth three times daily BACLOFEN 94685307619 Active Crispin Smith MD Active TEGRETOL-XR 200 MG ORAL TABLET EXTENDED RELEASE 12 CHRISTIANO R 1 tab by mouth twice daily CARBAMAZEPINE 27769733778 Active Crispin Smith MD Active LORATADINE 10 MG ORAL TABLET 1 tablet by mouth daily LORATADINE 54890155005 Active Crispin Smith MD Active CITALOPRAM HYDROBROMIDE 10 MG ORAL TABLET 1 qDay CITALOPRAM HYDROBROMIDE 49569509529 No Longer Active Crispin Smith MD Active GABAPENTIN 300 MG ORAL CAPSULE by mouth twice a day GABAPENTIN 23085007037 Active Rick Cutler MD Active FLOMAX 0.4 MG ORAL CAPSULE 1 Daily TAMSULOSI N HCL 43628625044 No Longer Active Crispin Smith MD Active LISINOPRIL 20 MG ORAL TABLET 1 tablet by mouth daily LISINOPRIL 85554316757 Active Crispin Smith MD Active ALPRAZOLAM 0.25 MG ORAL TABLET 1 tablet by mouth twice a day as needed for stress ALPRAZOLAM 85205553068 Active Crispin Smith MD Active FLOMAX 0.4 MG ORAL CAPSULE 1 Daily F MADINA 0.4 MG ORAL CAPSULE 355389 TAMSULOSIN HCL Inactive CITALOPRAM HYDROBROMIDE 10 MG ORAL TABLET 1 qDay CITALOPRAM HYDROBROMIDE 10 MG ORAL TABLET 138509 CITALOPRAM HYDROBR OMIDE Inactive HYDROCHLOROTHIAZIDE 25 MG ORAL TABLET 1/2 tablet by mouth daily HYDROCHLOROTHIAZIDE 25 MG ORAL TABLET 103056 HYDROCHLOR OTHIAZIDE Inactive CYPROHEPTADINE HCL 4 MG ORAL TABLET 1/2 tab by mouth at bedt melissa fpr frequency CYPROHEPTADINE HCL 4 MG ORAL TABLET 399318 CYPROHEPTADINE HCL Inactive Vital Signs Date Name [...] Range Description 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 Patient 19:42:30 CDT Crispin valerio MD [facility] CPT-10355 Level 4 Est. Patient 14:47:35 CDT Rick singh MD [facility] CPT-58374 Level 2 Est. Patient 15:53:54 CDT Crispin valerio MD [facility] CPT-95063 Level 3 Est. Patient 20:49:21 CDT Crispin valerio MD [facility] Procedures Code Procedure Name Date Entry Date Standard Desc ription CPT-05496 No Charge Offi Visit 12:45:26 CDT 3 CPT-28573 Postop F/U Visit 12:24:03 CDT CPT-22461 Abdomen, 1 view 10:02:40 CDT CPT-73245 Postop F/U Visit 17:29:32 CDT CPT-05113 Abdomen, 1 view 13:47:34 CDT CPT-34849 Abdomen, 1 view 13:56:21 CDT CPT-03343 Postop F/U Visit 10:40:02 CDT CPT-69870 Bladder Scan 15:53:55 CDT CPT-53857 Bladder Scan 10:11:31 CDT CPT-77675 Postop F/U Visit 10:11:30 CDT CPT-31942 Cystoscopy 20:49:21 CDT CPT-34271 Abd single AP View - XRAY USE ONLY 12:03:21 CDT
--- OUTSIDE RECORDS SUMMARY | 2020-01-01 12:53 | XMS REPORT | Clinical Summary ---
Author Author Admin, Ken Walsh [employer] Address Unknown Phone Unavailable Allergies, Adverse Reactions, [...] at bedt melissa fpr frequency CYPROHEPTADINE HCL 63557366113 No Longer Active Rick Cutler MD Active VITAMIN D (CHOLECALCIFEROL) 1000 UNIT ORAL CAPSULE 1 cap by mouth daily CHOLECALCIFEROL 72164975148 Active Crispin Smith MD Active HYDROCHLOROTHIAZIDE 25 MG ORAL TABLET 1/2 tablet by mouth daily HYDROCHLOROTHIAZIDE 33482095318 No Longer Active Crispin Smith MD Active BACLOFEN 10 MG ORAL TABLET 1 tab by mouth three times daily BACLOFEN 72412775984 Active Crispin Smith MD Active TEGRETOL-XR 200 MG ORAL TABLET EXTENDED RELEASE 12 CHRISTIANO R 1 tab by mouth twice daily CARBAMAZEPINE 56257269183 Active Crispin Smith MD Active LORATADINE 10 MG ORAL TABLET 1 tablet by mouth daily LORATADINE 72783918582 Active Crispin Smith MD Active CITALOPRAM HYDROBROMIDE 10 MG ORAL TABLET 1 qDay CITALOPRAM HYDROBROMIDE 55141334498 No Longer Active Crispin Smith MD Active GABAPENTIN 300 MG ORAL CAPSULE by mouth twice a day GABAPENTIN 41126738111 Active Rick Cutler MD Active FLOMAX 0.4 MG ORAL CAPSULE 1 Daily TAMSULOSI N HCL 75240330275 No Longer Active Crispin Smith MD Active LISINOPRIL 20 MG ORAL TABLET 1 tablet by mouth daily LISINOPRIL 19833513902 Active Crispin Smith MD Active ALPRAZOLAM 0.25 MG ORAL TABLET 1 tablet by mouth twice a day as needed for stress ALPRAZOLAM 09575029295 Active Crispin Smith MD Active FLOMAX 0.4 MG ORAL CAPSULE 1 Daily F MADINA 0.4 MG ORAL CAPSULE 842013 TAMSULOSIN HCL Inactive CITALOPRAM HYDROBROMIDE 10 MG ORAL TABLET 1 qDay CITALOPRAM HYDROBROMIDE 10 MG ORAL TABLET 596075 CITALOPRAM HYDROBR OMIDE Inactive HYDROCHLOROTHIAZIDE 25 MG ORAL TABLET 1/2 tablet by mouth daily HYDROCHLOROTHIAZIDE 25 MG ORAL TABLET 103761 HYDROCHLOR OTHIAZIDE Inactive CYPROHEPTADINE HCL 4 MG ORAL TABLET 1/2 tab by mouth at bedt melissa fpr frequency CYPROHEPTADINE HCL 4 MG ORAL TABLET 398665 CYPROHEPTADINE HCL Inactive Vital Signs Date Name [...] Range Description 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 Patient 19:42:30 CDT Crispin valerio MD [facility] CPT-36907 Level 4 Est. Patient 14:47:35 CDT Rick singh MD [facility] CPT-34499 Level 2 Est. Patient 15:53:54 CDT Crispin valerio MD [facility] CPT-48353 Level 3 Est. Patient 20:49:21 CDT Crispin valerio MD [facility] Procedures Code Procedure Name Date Entry Date Standard Desc ription CPT-68778 No Charge Offi Visit 12:45:26 CDT 3 CPT-69359 Postop F/U Visit 12:24:03 CDT CPT-83105 Abdomen, 1 view 10:02:40 CDT CPT-20279 Postop F/U Visit 17:29:32 CDT CPT-95593 Abdomen, 1 view 13:47:34 CDT CPT-24135 Abdomen, 1 view 13:56:21 CDT CPT-69427 Postop F/U Visit 10:40:02 CDT CPT-01438 Bladder Scan 15:53:55 CDT CPT-90364 Bladder Scan 10:11:31 CDT CPT-71543 Postop F/U Visit 10:11:30 CDT CPT-44369 Cystoscopy 20:49:21 CDT CPT-95161 Abd single AP View - XRAY USE ONLY 12:03:21 CDT
--- OUTSIDE RECORDS SUMMARY | 2020-01-01 12:53 | XMS REPORT | Clinical Summary ---
Author Author Admin, Ken Walsh [employer] Address Unknown Phone Unavailable Allergies, Adverse Reactions, [...] at bedt melissa fpr frequency CYPROHEPTADINE HCL 56569155529 No Longer Active Rick Cutler MD Active VITAMIN D (CHOLECALCIFEROL) 1000 UNIT ORAL CAPSULE 1 cap by mouth daily CHOLECALCIFEROL 03219585951 Active Crispin Smith MD Active HYDROCHLOROTHIAZIDE 25 MG ORAL TABLET 1/2 tablet by mouth daily HYDROCHLOROTHIAZIDE 91617266195 No Longer Active Crispin Smith MD Active BACLOFEN 10 MG ORAL TABLET 1 tab by mouth three times daily BACLOFEN 17232451201 Active Crispin Smith MD Active TEGRETOL-XR 200 MG ORAL TABLET EXTENDED RELEASE 12 CHRISTIANO R 1 tab by mouth twice daily CARBAMAZEPINE 85509322136 Active Crispin Smith MD Active LORATADINE 10 MG ORAL TABLET 1 tablet by mouth daily LORATADINE 64205133423 Active Crispin Smith MD Active CITALOPRAM HYDROBROMIDE 10 MG ORAL TABLET 1 qDay CITALOPRAM HYDROBROMIDE 60047438460 No Longer Active Crispin Smith MD Active GABAPENTIN 300 MG ORAL CAPSULE by mouth twice a day GABAPENTIN 71049671018 Active Rick Cutler MD Active FLOMAX 0.4 MG ORAL CAPSULE 1 Daily TAMSULOSI N HCL 07707462346 No Longer Active Crispin Smith MD Active LISINOPRIL 20 MG ORAL TABLET 1 tablet by mouth daily LISINOPRIL 70433449170 Active Crispin Smith MD Active ALPRAZOLAM 0.25 MG ORAL TABLET 1 tablet by mouth twice a day as needed for stress ALPRAZOLAM 29210426165 Active Crispin Smith MD Active FLOMAX 0.4 MG ORAL CAPSULE 1 Daily F MADINA 0.4 MG ORAL CAPSULE 663140 TAMSULOSIN HCL Inactive CITALOPRAM HYDROBROMIDE 10 MG ORAL TABLET 1 qDay CITALOPRAM HYDROBROMIDE 10 MG ORAL TABLET 369585 CITALOPRAM HYDROBR OMIDE Inactive HYDROCHLOROTHIAZIDE 25 MG ORAL TABLET 1/2 tablet by mouth daily HYDROCHLOROTHIAZIDE 25 MG ORAL TABLET 155183 HYDROCHLOR OTHIAZIDE Inactive CYPROHEPTADINE HCL 4 MG ORAL TABLET 1/2 tab by mouth at bedt melissa fpr frequency CYPROHEPTADINE HCL 4 MG ORAL TABLET 916667 CYPROHEPTADINE HCL Inactive Vital Signs Date Name [...] Range Description 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 Patient 19:42:30 CDT Crispin valerio MD [facility] CPT-26017 Level 4 Est. Patient 14:47:35 CDT Rick singh MD [facility] CPT-94978 Level 2 Est. Patient 15:53:54 CDT Crispin valerio MD [facility] CPT-34772 Level 3 Est. Patient 20:49:21 CDT Crispin valerio MD [facility] Procedures Code Procedure Name Date Entry Date Standard Desc ription CPT-77687 No Charge Offi Visit 12:45:26 CDT 3 CPT-86824 Postop F/U Visit 12:24:03 CDT CPT-55137 Abdomen, 1 view 10:02:40 CDT CPT-89460 Postop F/U Visit 17:29:32 CDT CPT-43355 Abdomen, 1 view 13:47:34 CDT CPT-58520 Abdomen, 1 view 13:56:21 CDT CPT-71663 Postop F/U Visit 10:40:02 CDT CPT-34147 Bladder Scan 15:53:55 CDT CPT-47617 Bladder Scan 10:11:31 CDT CPT-94383 Postop F/U Visit 10:11:30 CDT CPT-13325 Cystoscopy 20:49:21 CDT CPT-75543 Abd single AP View - XRAY USE ONLY 12:03:21 CDT
--- OUTSIDE RECORDS SUMMARY | 2020-01-01 12:53 | XMS REPORT | Clinical Summary ---
Author Author Admin, Ken Walsh [employer] Address Unknown Phone Unavailable Allergies, Adverse [...] at bedt melissa fpr frequency CYPROHEPTADINE HCL 11798288428 No Longer Active Rick Cutler MD Active VITAMIN D (CHOLECALCIFEROL) 1000 UNIT ORAL CAPSULE 1 cap by mouth daily CHOLECALCIFEROL 70171568758 Active Crispin Smith MD Active HYDROCHLOROTHIAZIDE 25 MG ORAL TABLET 1/2 tablet by mouth daily HYDROCHLOROTHIAZIDE 60905392804 No Longer Active Crispin Smith MD Active BACLOFEN 10 MG ORAL TABLET 1 tab by mouth three times daily BACLOFEN 07930480948 Active Crispin Smith MD Active TEGRETOL-XR 200 MG ORAL TABLET EXTENDED RELEASE 12 CHRISTIANO R 1 tab by mouth twice daily CARBAMAZEPINE 79442718565 Active Crispin Smith MD Active LORATADINE 10 MG ORAL TABLET 1 tablet by mouth daily LORATADINE 59769216127 Active Crispin Smith MD Active CITALOPRAM HYDROBROMIDE 10 MG ORAL TABLET 1 qDay CITALOPRAM HYDROBROMIDE 78264203389 No Longer Active Crispin Smith MD Active GABAPENTIN 300 MG ORAL CAPSULE by mouth twice a day GABAPENTIN 93381692949 Active Rick Cutler MD Active FLOMAX 0.4 MG ORAL CAPSULE 1 Daily TAMSULOSI N HCL 21204818592 No Longer Active Crispin Smith MD Active LISINOPRIL 20 MG ORAL TABLET 1 tablet by mouth daily LISINOPRIL 20413014979 Active Crispin Smith MD Active ALPRAZOLAM 0.25 MG ORAL TABLET 1 tablet by mouth twice a day as needed for stress ALPRAZOLAM 83542130792 Active Crispin Smith MD Active FLOMAX 0.4 MG ORAL CAPSULE 1 Daily F MADINA 0.4 MG ORAL CAPSULE 415457 TAMSULOSIN HCL Inactive CITALOPRAM HYDROBROMIDE 10 MG ORAL TABLET 1 qDay CITALOPRAM HYDROBROMIDE 10 MG ORAL TABLET 449514 CITALOPRAM HYDROBR OMIDE Inactive HYDROCHLOROTHIAZIDE 25 MG ORAL TABLET 1/2 tablet by mouth daily HYDROCHLOROTHIAZIDE 25 MG ORAL TABLET 663383 HYDROCHLOR OTHIAZIDE Inactive CYPROHEPTADINE HCL 4 MG ORAL TABLET 1/2 tab by mouth at bedt melissa fpr frequency CYPROHEPTADINE HCL 4 MG ORAL TABLET 709730 CYPROHEPTADINE HCL Inactive Vital Signs Date Name [...] Range Description 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 Patient 19:42:30 CDT Crispin valerio MD [facility] CPT-10316 Level 4 Est. Patient 14:47:35 CDT Rick singh MD [facility] CPT-52102 Level 2 Est. Patient 15:53:54 CDT Crispin valerio MD [facility] CPT-09961 Level 3 Est. Patient 20:49:21 CDT Crispin valerio MD [facility] Procedures Code Procedure Name Date Entry Date Standard Desc ription CPT-27648 No Charge Offi Visit 12:45:26 CDT 3 CPT-77189 Postop F/U Visit 12:24:03 CDT CPT-43761 Abdomen, 1 view 10:02:40 CDT CPT-39712 Postop F/U Visit 17:29:32 CDT CPT-03102 Abdomen, 1 view 13:47:34 CDT CPT-05993 Abdomen, 1 view 13:56:21 CDT CPT-61510 Postop F/U Visit 10:40:02 CDT CPT-27127 Bladder Scan 15:53:55 CDT CPT-65030 Bladder Scan 10:11:31 CDT CPT-38036 Postop F/U Visit 10:11:30 CDT CPT-53361 Cystoscopy 20:49:21 CDT CPT-95791 Abd single AP View - XRAY USE ONLY 12:03:21 CDT
--- OUTSIDE RECORDS SUMMARY | 2020-01-01 12:53 | XMS REPORT | Clinical Summary ---
Author Author Admin, Ken Walsh [employer] Address Unknown Phone Unavailable Allergies, Adverse Reactions, [...] at bedt melissa fpr frequency CYPROHEPTADINE HCL 20281425682 No Longer Active Rick Cutler MD Active VITAMIN D (CHOLECALCIFEROL) 1000 UNIT ORAL CAPSULE 1 cap by mouth daily CHOLECALCIFEROL 09248620199 Active Crispin Smith MD Active HYDROCHLOROTHIAZIDE 25 MG ORAL TABLET 1/2 tablet by mouth daily HYDROCHLOROTHIAZIDE 00993344439 No Longer Active Crispin Smith MD Active BACLOFEN 10 MG ORAL TABLET 1 tab by mouth three times daily BACLOFEN 49544468564 Active Crispin Smith MD Active TEGRETOL-XR 200 MG ORAL TABLET EXTENDED RELEASE 12 CHRISTIANO R 1 tab by mouth twice daily CARBAMAZEPINE 79722184502 Active Crispin Smith MD Active LORATADINE 10 MG ORAL TABLET 1 tablet by mouth daily LORATADINE 75322419274 Active Crispin Smith MD Active CITALOPRAM HYDROBROMIDE 10 MG ORAL TABLET 1 qDay CITALOPRAM HYDROBROMIDE 70879575577 No Longer Active Crispin Smith MD Active GABAPENTIN 300 MG ORAL CAPSULE by mouth twice a day GABAPENTIN 24489972095 Active Rick Cutler MD Active FLOMAX 0.4 MG ORAL CAPSULE 1 Daily TAMSULOSI N HCL 33844694220 No Longer Active Crispin Smith MD Active LISINOPRIL 20 MG ORAL TABLET 1 tablet by mouth daily LISINOPRIL 15957526913 Active Crispin Smith MD Active ALPRAZOLAM 0.25 MG ORAL TABLET 1 tablet by mouth twice a day as needed for stress ALPRAZOLAM 51856710709 Active Crispin Smith MD Active FLOMAX 0.4 MG ORAL CAPSULE 1 Daily F MADINA 0.4 MG ORAL CAPSULE 751653 TAMSULOSIN HCL Inactive CITALOPRAM HYDROBROMIDE 10 MG ORAL TABLET 1 qDay CITALOPRAM HYDROBROMIDE 10 MG ORAL TABLET 858083 CITALOPRAM HYDROBR OMIDE Inactive HYDROCHLOROTHIAZIDE 25 MG ORAL TABLET 1/2 tablet by mouth daily HYDROCHLOROTHIAZIDE 25 MG ORAL TABLET 962294 HYDROCHLOR OTHIAZIDE Inactive CYPROHEPTADINE HCL 4 MG ORAL TABLET 1/2 tab by mouth at bedt melissa fpr frequency CYPROHEPTADINE HCL 4 MG ORAL TABLET 716684 CYPROHEPTADINE HCL Inactive Vital Signs Date Name [...] Range Description 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 Patient 19:42:30 CDT Crispin valerio MD [facility] CPT-45732 Level 4 Est. Patient 14:47:35 CDT Rick singh MD [facility] CPT-85437 Level 2 Est. Patient 15:53:54 CDT Crispin valerio MD [facility] CPT-33425 Level 3 Est. Patient 20:49:21 CDT Crispin valerio MD [facility] Procedures Code Procedure Name Date Entry Date Standard Desc ription CPT-74032 No Charge Offi Visit 12:45:26 CDT 3 CPT-81034 Postop F/U Visit 12:24:03 CDT CPT-05752 Abdomen, 1 view 10:02:40 CDT CPT-50931 Postop F/U Visit 17:29:32 CDT CPT-91760 Abdomen, 1 view 13:47:34 CDT CPT-47595 Abdomen, 1 view 13:56:21 CDT CPT-96348 Postop F/U Visit 10:40:02 CDT CPT-03026 Bladder Scan 15:53:55 CDT CPT-02369 Bladder Scan 10:11:31 CDT CPT-06082 Postop F/U Visit 10:11:30 CDT CPT-10446 Cystoscopy 20:49:21 CDT CPT-54247 Abd single AP View - XRAY USE ONLY 12:03:21 CDT
--- OUTSIDE RECORDS SUMMARY | 2020-01-01 12:53 | XMS REPORT | Clinical Summary ---
Author Author Admin, Ken Walsh [employer] Address Unknown Phone Unavailable Allergies, Adverse Reactions, [...] Smith MD Body Mass Index 25.0-25.9, adult Medication List Medication Instructions Start Date Stop Date Generic Name NDC Status Provider Patient Instruction VITAMIN D (CHOLECALCIFEROL) 1000 UNIT ORAL CAPSULE 1 cap by mouth daily CHOLECALCIFEROL 10356467052 Active Crispin Smith MD Active HYDROCHLOROTHIAZIDE 25 MG ORAL TABLET 1/2 tablet by mouth daily HYDROCHLOROTHIAZIDE 53412141587 No Longer Active Crispin Smith MD Active BACLOFEN 10 MG ORAL TABLET 1 tab by mouth three times daily BACLOFEN 37204470647 Active Crispin Smith MD Active TEGRETOL-XR 200 MG ORAL TABLET EXTENDED RELEASE 12 CHRISTIANO R 1 tab by mouth twice daily CARBAMAZEPINE 91744114065 Active Crispin Smith MD Active LORATADINE 10 MG ORAL TABLET 1 tablet by mouth daily LORATADINE 35377539848 Active Crispin Smith MD Active CYPROHEPTADINE HCL 4 MG ORAL TABLET 1/2 tab by mouth at bedt melissa fpr frequency CYPROHEPTADINE HCL 60209622300 Active Crispin Swain Active CITALOPRAM HYDROBROMIDE 10 MG ORAL TABLET 1 qDay CITALOPRAM HYDROBROMIDE 89944742506 No Longer Active Crispin Smith MD Active GABAPENTIN 300 MG ORAL CAPSULE by mouth twice a day GABAPENTIN 27146258459 Active Rick Cutler MD Active FLOMAX 0.4 MG ORAL CAPSULE 1 Daily TAMSULOSI N HCL 67819666747 No Longer Active Crispin Smith MD Active LISINOPRIL 20 MG ORAL TABLET 1 tablet by mouth daily LISINOPRIL 77502976723 Active Crispin Smith MD Active ALPRAZOLAM 0.25 MG ORAL TABLET 1 tablet by mouth twice a day as needed for stress ALPRAZOLAM 47368262512 Active Crispin Smith MD Active FLOMAX 0.4 MG ORAL CAPSULE 1 Daily F MADINA 0.4 MG ORAL CAPSULE 721226 TAMSULOSIN HCL Inactive CITALOPRAM HYDROBROMIDE 10 MG ORAL TABLET 1 qDay CITALOPRAM HYDROBROMIDE 10 MG ORAL TABLET 561496 CITALOPRAM HYDROBR OMIDE Inactive HYDROCHLOROTHIAZIDE 25 MG ORAL TABLET 1/2 tablet by mouth daily HYDROCHLOROTHIAZIDE 25 MG ORAL TABLET 115341 HYDROCHLOR OTHIAZIDE Inactive Vital Signs Date Name Value Unit Range Description blood pressure, diastolic 87 mm[Hg] BP funk [...] Range Description 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 Patient 19:42:30 CDT Crispin valerio MD [facility] CPT-73097 Level 4 Est. Patient 14:47:35 CDT Rick sinhg MD [facility] CPT-83066 Level 2 Est. Patient 15:53:54 CDT Crispin valerio MD [facility] CPT-19058 Level 3 Est. Patient 20:49:21 CDT Crispin valerio MD [facility] Procedures Code Procedure Name Date Entry Date Standard Desc ription CPT-71521 Postop F/U Visit 12:24:03 CDT CPT-46389 Abdomen, 1 view 10:02:40 CDT CPT-76764 Postop F/U Visit 17:29:32 CDT CPT-75774 Abdomen, 1 view 13:47:34 CDT CPT-77932 Abdomen, 1 view 13:56:21 CDT CPT-34680 Postop F/U Visit 10:40:02 CDT CPT-47919 Bladder Scan 15:53:55 CDT CPT-19567 Bladder Scan 10:11:31 CDT CPT-30172 Postop F/U Visit 10:11:30 CDT CPT-99339 Cystoscopy 20:49:21 CDT CPT-89067 Abd single AP View - XRAY USE ONLY 12:03:21 CDT
--- OUTSIDE RECORDS SUMMARY | 2020-01-01 12:53 | XMS REPORT | Clinical Summary ---
Author Author Admin, Ken Walsh [employer] Address Unknown Phone Unavailable Allergies, Adverse Reactions, [...] at bedt melissa fpr frequency CYPROHEPTADINE HCL 24625072470 No Longer Active Rick Cutler MD Active VITAMIN D (CHOLECALCIFEROL) 1000 UNIT ORAL CAPSULE 1 cap by mouth daily CHOLECALCIFEROL 36733204731 Active Crispin Smith MD Active HYDROCHLOROTHIAZIDE 25 MG ORAL TABLET 1/2 tablet by mouth daily HYDROCHLOROTHIAZIDE 11953638180 No Longer Active Crispin Smith MD Active BACLOFEN 10 MG ORAL TABLET 1 tab by mouth three times daily BACLOFEN 37630054807 Active Crispin Smith MD Active TEGRETOL-XR 200 MG ORAL TABLET EXTENDED RELEASE 12 CHRISTIANO R 1 tab by mouth twice daily CARBAMAZEPINE 13254044001 Active Crispin Smith MD Active LORATADINE 10 MG ORAL TABLET 1 tablet by mouth daily LORATADINE 57055051395 Active Crispin Smith MD Active CITALOPRAM HYDROBROMIDE 10 MG ORAL TABLET 1 qDay CITALOPRAM HYDROBROMIDE 61944776326 No Longer Active Crispin Smith MD Active GABAPENTIN 300 MG ORAL CAPSULE by mouth twice a day GABAPENTIN 76984397731 Active Rick Cutler MD Active FLOMAX 0.4 MG ORAL CAPSULE 1 Daily TAMSULOSI N HCL 46721323414 No Longer Active Crispin Smith MD Active LISINOPRIL 20 MG ORAL TABLET 1 tablet by mouth daily LISINOPRIL 73863753596 Active Crispin Smith MD Active ALPRAZOLAM 0.25 MG ORAL TABLET 1 tablet by mouth twice a day as needed for stress ALPRAZOLAM 32391164088 Active Crispin Smith MD Active FLOMAX 0.4 MG ORAL CAPSULE 1 Daily F MADINA 0.4 MG ORAL CAPSULE 864880 TAMSULOSIN HCL Inactive CITALOPRAM HYDROBROMIDE 10 MG ORAL TABLET 1 qDay CITALOPRAM HYDROBROMIDE 10 MG ORAL TABLET 022537 CITALOPRAM HYDROBR OMIDE Inactive HYDROCHLOROTHIAZIDE 25 MG ORAL TABLET 1/2 tablet by mouth daily HYDROCHLOROTHIAZIDE 25 MG ORAL TABLET 664299 HYDROCHLOR OTHIAZIDE Inactive CYPROHEPTADINE HCL 4 MG ORAL TABLET 1/2 tab by mouth at bedt melissa fpr frequency CYPROHEPTADINE HCL 4 MG ORAL TABLET 831384 CYPROHEPTADINE HCL Inactive Vital Signs Date Name [...] Range Description 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 Patient 19:42:30 CDT Crispin valerio MD [facility] CPT-51127 Level 4 Est. Patient 14:47:35 CDT Rick singh MD [facility] CPT-26136 Level 2 Est. Patient 15:53:54 CDT Crispin valerio MD [facility] CPT-10159 Level 3 Est. Patient 20:49:21 CDT Crispin valerio MD [facility] Procedures Code Procedure Name Date Entry Date Standard Desc ription CPT-33426 No Charge Offi Visit 12:45:26 CDT 3 CPT-09591 Postop F/U Visit 12:24:03 CDT CPT-99827 Abdomen, 1 view 10:02:40 CDT CPT-78178 Postop F/U Visit 17:29:32 CDT CPT-63904 Abdomen, 1 view 13:47:34 CDT CPT-69048 Abdomen, 1 view 13:56:21 CDT CPT-62941 Postop F/U Visit 10:40:02 CDT CPT-15076 Bladder Scan 15:53:55 CDT CPT-16505 Bladder Scan 10:11:31 CDT CPT-14626 Postop F/U Visit 10:11:30 CDT CPT-42559 Cystoscopy 20:49:21 CDT CPT-37691 Abd single AP View - XRAY USE ONLY 12:03:21 CDT
--- OUTSIDE RECORDS SUMMARY | 2020-01-01 12:53 | XMS REPORT | Clinical Summary ---
Author Author Admin, Ken Luo Organization [email or web address] Address Unknown Phone Unavailable Allergies, Adverse Reactions, [...] CAPSULE 1 cap by mouth daily CHOLECALCIFEROL 33438913954 Active Crispin Smith MD Active HYDROCHLOROTHIAZIDE 25 MG ORAL TABLET 1/2 tablet by mouth daily HYDROCHLOROTHIAZIDE 23665630229 No Longer Active Crispin Smith MD Active BACLOFEN 10 MG ORAL TABLET 1 tab by mouth three times daily BACLOFEN 10219374776 Active Crispin Smith MD Active TEGRETOL-XR 200 MG ORAL TABLET EXTENDED RELEASE 12 CHRISTIANO R 1 tab by mouth twice daily CARBAMAZEPINE 52298386628 Active Crispin Smith MD Active LORATADINE 10 MG ORAL TABLET 1 tablet by mouth daily LORATADINE 11752385671 Active Crispin Smith MD Active CYPROHEPTADINE HCL 4 MG ORAL TABLET 1/2 tab by mouth at bedt melissa fpr frequency CYPROHEPTADINE HCL 70015239143 Active Crispin Swain Active CITALOPRAM HYDROBROMIDE 10 MG ORAL TABLET 1 qDay CITALOPRAM HYDROBROMIDE 76957114022 No Longer Active Crispin Smith MD Active GABAPENTIN 300 MG ORAL CAPSULE by mouth twice a day GABAPENTIN 70364108382 Active Rick Cutler MD Active FLOMAX 0.4 MG ORAL CAPSULE 1 Daily TAMSULOSI N HCL 48978160505 No Longer Active Crispin Smith MD Active LISINOPRIL 20 MG ORAL TABLET 1 tablet by mouth daily LISINOPRIL 26924939018 Active Crispin Smith MD Active ALPRAZOLAM 0.25 MG ORAL TABLET 1 tablet by mouth twice a day as needed for stress ALPRAZOLAM 91509253592 Active Crispin Smith MD Active FLOMAX 0.4 MG ORAL CAPSULE 1 Daily F MADINA 0.4 MG ORAL CAPSULE 441209 TAMSULOSIN HCL Inactive CITALOPRAM HYDROBROMIDE 10 MG ORAL TABLET 1 qDay CITALOPRAM HYDROBROMIDE 10 MG ORAL TABLET 005780 CITALOPRAM HYDROBR OMIDE Inactive HYDROCHLOROTHIAZIDE 25 MG ORAL TABLET 1/2 tablet by mouth daily HYDROCHLOROTHIAZIDE 25 MG ORAL TABLET 755622 HYDROCHLOR OTHIAZIDE Inactive Vital Signs Date Name [...] Range Description Office Visit: CN-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 Patient 19:42:30 CDT Crispin valerio MD [facility] CPT-64770 Level 4 Est. Patient 14:47:35 CDT Rick singh MD [facility] CPT-33185 Level 2 Est. Patient 15:53:54 CDT Crispin valerio MD [facility] CPT-11813 Level 3 Est. Patient 20:49:21 CDT Crispin valerio MD [facility] Procedures Code Procedure Name Date Entry Date Standard Desc ription CPT-86338 Postop F/U Visit 12:24:03 CDT CPT-21446 Abdomen, 1 view 10:02:40 CDT CPT-45560 Postop F/U Visit 17:29:32 CDT CPT-52839 Abdomen, 1 view 13:47:34 CDT CPT-63822 Abdomen, 1 view 13:56:21 CDT CPT-46792 Postop F/U Visit 10:40:02 CDT CPT-71287 Bladder Scan 15:53:55 CDT CPT-08259 Bladder Scan 10:11:31 CDT CPT-05607 Postop F/U Visit 10:11:30 CDT CPT-74919 Cystoscopy 20:49:21 CDT CPT-44789 Abd single AP View - XRAY USE ONLY 12:03:21 CDT
--- OUTSIDE RECORDS SUMMARY | 2020-01-01 12:54 | XMS REPORT | Clinical Summary ---
Author Author Admin, Ken Walsh [employer] Address Unknown Phone Unavailable Allergies, Adverse Reactions, [...] obstruction or gangrene (not specified as recurrent) Medication List Medication Instructions Start Date Stop Date Generic Name NDC Status Provider Patient Instruction LORATADINE 10 MG ORAL TABLET 1 tablet by mouth daily LORATADINE 79412877692 Active Crispin Smith MD Active HYDROCHLOROTHIAZIDE 25 MG ORAL TABLET 1/2 tablet by mouth daily 201 02/02/21 HYDROCHLOROTHIAZIDE 61534293343 Active Crispin Smith MD A ctive CYPROHEPTADINE HCL 4 MG ORAL TABLET 1/2 tab by mouth at bedt melissa fpr frequency CYPROHEPTADINE HCL 06399091370 Active Crispin Swain Active CITALOPRAM HYDROBROMIDE 10 MG ORAL TABLET 1 qDay CITALOPRAM HYDROBROMIDE 37670282500 No Longer Active Crispin Smith MD Active GABAPENTIN 300 MG ORAL CAPSULE by mouth twice a day GABAPENTIN 97580072606 Active Rick Cutler MD Active FLOMAX 0.4 MG ORAL CAPSULE 1 Daily TAMSULOSI N HCL 79582764949 No Longer Active Crispin Smith MD Active LISINOPRIL 20 MG ORAL TABLET 1 tablet by mouth daily LISINOPRIL 29132264901 Active Crispin Smith MD Active ALPRAZOLAM 0.25 MG ORAL TABLET 1 tablet by mouth twice a day as needed for stress ALPRAZOLAM 24481267043 Active Crispin Smith MD Active FLOMAX 0.4 MG ORAL CAPSULE 1 Daily F MADINA 0.4 MG ORAL CAPSULE 679334 TAMSULOSIN HCL Inactive CITALOPRAM HYDROBROMIDE 10 MG ORAL TABLET 1 qDay CITALOPRAM HYDROBROMIDE 10 MG ORAL TABLET 216700 CITALOPRAM HYDROBR OMIDE Inactive Vital Signs Date Name Value Unit Range Description blood pressure, diastolic, repeated by physician 84 [...] Range Description 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 Patient 19:42:30 CDT Crispin valerio MD [facility] CPT-63358 Level 4 Est. Patient 14:47:35 CDT Rick singh MD [facility] CPT-91214 Level 2 Est. Patient 15:53:54 CDT Crispin valerio MD [facility] CPT-20202 Level 3 Est. Patient 20:49:21 CDT Crispin valerio MD [facility] Procedures Code Procedure Name Date Entry Date Standard Desc ription CPT-26935 Abdomen, 1 view 13:47:34 CDT CPT-41605 Abdomen, 1 view 13:56:21 CDT CPT-91491 Postop F/U Visit 10:40:02 CDT CPT-15517 Bladder Scan 15:53:55 CDT CPT-60767 Bladder Scan 10:11:31 CDT CPT-96161 Postop F/U Visit 10:11:30 CDT CPT-43186 Cystoscopy 20:49:21 CDT CPT-34062 Abd single AP View - XRAY USE ONLY 12:03:21 CDT
--- OUTSIDE RECORDS SUMMARY | 2020-01-01 12:54 | XMS REPORT | Clinical Summary ---
Author Author Admin, Ken Walsh [employer] Address Unknown Phone Unavailable Allergies, Adverse Reactions, [...] Crispin Smith MD Retention of urine, unspecified Medication List Medication Instructions Start Date Stop Date Generic Name NDC Status Provider Patient Instruction FLOMAX 0.4 MG CAPS 1 Daily TAMSULOSIN HCL 5456 3982903 No Longer Active Crispin Smith MD Active LISINOPRIL 20 MG TABS 1 tablet by mouth daily LISINOPRIL 67633568780 Active Crispin Smith MD Active CITALOPRAM HYDROBROMIDE 10 MG TABS 1 qDay C ITALOPRAM HYDROBROMIDE 75924065289 Active Crispin Smith MD Active ALPRAZOLAM 0.25 MG TAB 1 tablet by mouth twice a day as need ed for stress ALPRAZOLAM 66557840905 Active Crispin Smith MD Active FLOMAX 0.4 MG CAPS 1 Daily FLOMAX 0.4 MG CAPS 035397 TAMSULOSIN HCL Inactive Vital Signs Date Name Value Unit Range Description blood pressure, diastolic - 8462-4 93 mm[Hg] BP funk blood pressure, systolic - 8480-6 127 mm[Hg] BP sys height E&M - 8302-2 69 [in_us] Bdy h eight pulse rate E&M - 8867-4 85 /min H eart rate temperature E&M 98.8 [degF] Body temp erature weight E&M - 3141-9 159 [lb_av] Weigh t Measured blood pressure, diastolic - 8462-4 91 mm[Hg] BP funk blood pressure, systolic - 8480-6 128 mm[Hg] BP sys height E&M - 8302-2 69 [in_us] Bdy h eight pulse rate E&M - 8867-4 78 /min H eart rate temperature E&M 98.1 [degF] Body temp erature weight E&M - 3141-9 160 [lb_av] Weigh t Measured Encounters Code Encounter Date Provider Facility CPT-74739 Level 3 Est. Patient 20:49:21 CDT J Dakota valerio MD [facility] Procedures Code Procedure Name Date Entry Date Standard Desc ription CPT-81528 Bladder Scan 10:11:31 CDT CPT-91507 Postop F/U Visit 10:11:30 CDT CPT-37972 Cystoscopy 20:49:21 CDT CPT-84276 Abd single AP View - XRAY USE ONLY 12:03:21 CDT
--- OUTSIDE RECORDS SUMMARY | 2020-01-01 12:54 | XMS REPORT | Clinical Summary ---
Author Author Admin, Ken Walsh [employer] Address Unknown Phone Unavailable Allergies, Adverse Reactions, [...] 0.4 MG CAPS 1 Daily TAMSULOSIN HCL 11719893927 Active Crispin Smith MD Active LISINOPRIL 20 MG TABS 1 tablet by mouth daily LISINOPRIL 69546266782 Active Crispin Smith MD Active CITALOPRAM HYDROBROMIDE 10 MG TABS 1 qDay C ITALOPRAM HYDROBROMIDE 52811545379 Active Crispin Smith MD Active ALPRAZOLAM 0.25 MG TAB 1 tablet by mouth twice a day as need ed for stress ALPRAZOLAM 66211021136 Active Crispin Smith MD Active Vital Signs Date Name Value Unit Range Description blood pressure, diastolic - 8462-4 91 mm[Hg] BP funk blood pressure, systolic - 8480-6 128 mm[Hg] BP sys height E&M - 8302-2 69 [in_us] Bdy h eight pulse rate E&M - 8867-4 78 /min H eart rate temperature E&M 98.1 [degF] Body temp erature weight E&M - 3141-9 160 [lb_av] Weigh t Measured Encounters Code Encounter Date Provider Facility CPT-55097 Level 3 Est. Patient 20:49:21 CDT J Dakota valerio MD [facility] Procedures Code Procedure Name Date Entry Date Standard Desc ription CPT-58945 Cystoscopy 20:49:21 CDT CPT-76164 Abd single AP View - XRAY USE ONLY 12:03:21 CDT
--- OUTSIDE RECORDS SUMMARY | 2020-01-01 12:54 | XMS REPORT | Clinical Summary ---
Author Author Admin, Ken Walsh [employer] Address Unknown Phone Unavailable Allergies, Adverse Reactions, Alerts Allergy Name Reaction Description Start Date Severity Status Pr ovider VERAPAMIL Critical Active Crispin العلي on SERTRALINE HCL Critical Active Crispin drake MD IBUPROFEN Critical Active Crispin العلي on NICOTINE STEP 1 Critical Active Crispin valerio MD NAPROXEN SODIUM Critical Active Crispin valeiro MD SUDAFED Critical Active Crispin mcmahon MD [...] MG CAPS 1 Daily TAMSULOSIN HCL 5456 2299166 No Longer Active Crispin Smith MD Active LISINOPRIL 20 MG TABS 1 tablet by mouth daily LISINOPRIL 14207621174 Active Crispin Smith MD Active CITALOPRAM HYDROBROMIDE 10 MG TABS 1 qDay C ITALOPRAM HYDROBROMIDE 24228081157 Active Crispin Smith MD Active ALPRAZOLAM 0.25 MG TAB 1 tablet by mouth twice a day as need ed for stress ALPRAZOLAM 14244921780 Active Crispin Smith MD Active FLOMAX 0.4 MG CAPS 1 Daily FLOMAX 0.4 MG [facility] 907790 TAMSULOSIN HCL Inactive Vital Signs Date Name Value Unit Range Description blood pressure, diastolic 92 mm[Hg] BP funk blood pressure, systolic 130 mm[Hg] BP sys pulse rate E&M 79 /min Heart rate temperature E&M 98.3 [degF] Body temp erature weight E&M 159 [lb_av] Weight Measure d blood pressure, diastolic 93 mm[Hg] BP funk blood pressure, systolic 127 mm[Hg] BP sys height E&M 69 [in_us] Bdy height pulse rate E&M 85 /min Heart rate temperature E&M 98.8 [degF] Body temp erature weight E&M 159 [lb_av] Weight Measure d blood pressure, diastolic 91 mm[Hg] BP funk blood pressure, systolic 128 mm[Hg] BP sys height E&M 69 [in_us] Bdy height pulse rate E&M 78 /min Heart rate temperature E&M 98.1 [degF] Body temp erature weight E&M 160 [lb_av] Weight Measure d Encounters Code Encounter Date Provider Facility CPT-19836 Level 2 Est. Patient 15:53:54 CDT Crispin valerio MD [facility] CPT-65163 Level 3 Est. Patient 20:49:21 CDT Crispin valerio MD [facility] Procedures Code Procedure Name Date Entry Date Standard Desc ription CPT-07252 Bladder Scan 15:53:55 CDT CPT-40895 Bladder Scan 10:11:31 CDT CPT-02302 Postop F/U Visit 10:11:30 CDT CPT-59715 Cystoscopy 20:49:21 CDT CPT-24981 Abd single AP View - XRAY USE ONLY 12:03:21 CDT
--- OUTSIDE RECORDS SUMMARY | 2020-01-01 12:54 | XMS REPORT | Clinical Summary ---
Author Author Admin, Ken Luo Organization [employer] Address Unknown Phone Unavailable Allergies, Adverse Reactions, [...] Generic Name NDC Status Provider Patient Instruction GABAPENTIN 300 MG ORAL CAPSULE by mouth twice a day GABAPENTIN 72242274497 Active Rick Cutler MD Active FLOMAX 0.4 MG CAPS 1 Daily TAMSULOSIN HCL 5456 4523967 No Longer Active Crispin Smith MD Active LISINOPRIL 20 MG TABS 1 tablet by mouth daily LISINOPRIL 19062517753 Active Crispin Smith MD Active CITALOPRAM HYDROBROMIDE 10 MG TABS 1 qDay C ITALOPRAM HYDROBROMIDE 32662261115 Active Crispin Smith MD Active ALPRAZOLAM 0.25 MG TAB 1 tablet by mouth twice a day as need ed for stress ALPRAZOLAM 41685976886 Active Crispin Smith MD Active FLOMAX 0.4 MG CAPS 1 Daily FLOMAX 0.4 MG CAPS 257516 TAMSULOSIN HCL Inactive Vital Signs Date Name Value Unit Range Description blood pressure, diastolic 88 mm[Hg] BP funk [...] d Encounters Code Encounter Date Provider Facility CPT-54906 Level 4 Est. Patient 14:47:35 CDT Rick singh MD [facility] CPT-58155 Level 2 Est. Patient 15:53:54 CDT Crispin valerio MD [facility] CPT-43123 Level 3 Est. Patient 20:49:21 CDT Crispin valerio MD [facility] Procedures Code Procedure Name Date Entry Date Standard Desc ription CPT-74998 Bladder Scan 15:53:55 CDT CPT-88192 Bladder Scan 10:11:31 CDT CPT-93243 Postop F/U Visit 10:11:30 CDT CPT-34622 Cystoscopy 20:49:21 CDT CPT-19164 Abd single AP View - XRAY USE ONLY 12:03:21 CDT
--- OUTSIDE RECORDS SUMMARY | 2020-01-01 12:54 | XMS REPORT | Clinical Summary ---
Author Author Admin, Ken Luo Organization [employer] Address Unknown Phone Unavailable Allergies, Adverse Reactions, [...] CAPSULE 1 cap by mouth daily CHOLECALCIFEROL 26598258132 Active Crispin Smith MD Active HYDROCHLOROTHIAZIDE 25 MG ORAL TABLET 1/2 tablet by mouth daily HYDROCHLOROTHIAZIDE 78882781299 No Longer Active Crispin Smith MD Active BACLOFEN 10 MG ORAL TABLET 1 tab by mouth three times daily BACLOFEN 97331942574 Active Crispin Smith MD Active TEGRETOL-XR 200 MG ORAL TABLET EXTENDED RELEASE 12 CHRISTIANO R 1 tab by mouth twice daily CARBAMAZEPINE 73361694192 Active Crispin Smith MD Active LORATADINE 10 MG ORAL TABLET 1 tablet by mouth daily LORATADINE 55092417754 Active Crispin Smith MD Active CYPROHEPTADINE HCL 4 MG ORAL TABLET 1/2 tab by mouth at bedt melissa fpr frequency CYPROHEPTADINE HCL 07366021886 Active Crispin Swain Active CITALOPRAM HYDROBROMIDE 10 MG ORAL TABLET 1 qDay CITALOPRAM HYDROBROMIDE 32082832636 No Longer Active Crispin Smith MD Active GABAPENTIN 300 MG ORAL CAPSULE by mouth twice a day GABAPENTIN 99769281645 Active Rick Cutler MD Active FLOMAX 0.4 MG ORAL CAPSULE 1 Daily TAMSULOSI N HCL 46343396438 No Longer Active Crispin Smith MD Active LISINOPRIL 20 MG ORAL TABLET 1 tablet by mouth daily LISINOPRIL 73322743535 Active Crispin Smith MD Active ALPRAZOLAM 0.25 MG ORAL TABLET 1 tablet by mouth twice a day as needed for stress ALPRAZOLAM 88775304591 Active Crispin Smith MD Active FLOMAX 0.4 MG ORAL CAPSULE 1 Daily F MADINA 0.4 MG ORAL CAPSULE 192620 TAMSULOSIN HCL Inactive CITALOPRAM HYDROBROMIDE 10 MG ORAL TABLET 1 qDay CITALOPRAM HYDROBROMIDE 10 MG ORAL TABLET 598306 CITALOPRAM HYDROBR OMIDE Inactive HYDROCHLOROTHIAZIDE 25 MG ORAL TABLET 1/2 tablet by mouth daily HYDROCHLOROTHIAZIDE 25 MG ORAL TABLET 432274 HYDROCHLOR OTHIAZIDE Inactive Vital Signs Date Name Value Unit Range Description blood pressure, diastolic 85 mm[Hg] BP funk [...] Range Description Office Visit: CN-kidney stone - 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 Patient 19:42:30 CDT Crispin valerio MD [facility] CPT-26079 Level 4 Est. Patient 14:47:35 CDT Rick singh MD [facility] CPT-71895 Level 2 Est. Patient 15:53:54 CDT Crispin valerio MD [facility] CPT-30547 Level 3 Est. Patient 20:49:21 CDT Crispin valerio MD [facility] Procedures Code Procedure Name Date Entry Date Standard Desc ription CPT-12900 Postop F/U Visit 12:24:03 CDT CPT-37709 Abdomen, 1 view 10:02:40 CDT CPT-72688 Postop F/U Visit 17:29:32 CDT CPT-47268 Abdomen, 1 view 13:47:34 CDT CPT-36963 Abdomen, 1 view 13:56:21 CDT CPT-89902 Postop F/U Visit 10:40:02 CDT CPT-22732 Bladder Scan 15:53:55 CDT CPT-08587 Bladder Scan 10:11:31 CDT CPT-88606 Postop F/U Visit 10:11:30 CDT CPT-92667 Cystoscopy 20:49:21 CDT CPT-76834 Abd single AP View - XRAY USE ONLY 12:03:21 CDT
--- OUTSIDE RECORDS SUMMARY | 2020-01-01 12:54 | XMS REPORT | Clinical Summary ---
Author Author Admin, Ken Walsh [employer] Address Unknown Phone Unavailable Allergies, Adverse Reactions, [...] TABLET 1 tablet by mouth daily LORATADINE 38259279839 Active Crispin Smith MD Active HYDROCHLOROTHIAZIDE 25 MG ORAL TABLET 1/2 tablet by mouth daily 201 02/02/21 HYDROCHLOROTHIAZIDE 17079361401 Active Crispin Smith MD A ctive CYPROHEPTADINE HCL 4 MG ORAL TABLET 1/2 tab by mouth at bedt melissa fpr frequency CYPROHEPTADINE HCL 14524531177 Active Crispin Swain Active CITALOPRAM HYDROBROMIDE 10 MG ORAL TABLET 1 qDay CITALOPRAM HYDROBROMIDE 06289373139 No Longer Active Crispin Smith MD Active GABAPENTIN 300 MG ORAL CAPSULE by mouth twice a day GABAPENTIN 55112184102 Active Rick Cutler MD Active FLOMAX 0.4 MG ORAL CAPSULE 1 Daily TAMSULOSI N HCL 55224684258 No Longer Active Crispin Smith MD Active LISINOPRIL 20 MG ORAL TABLET 1 tablet by mouth daily LISINOPRIL 85250059299 Active Crispin Smith MD Active ALPRAZOLAM 0.25 MG ORAL TABLET 1 tablet by mouth twice a day as needed for stress ALPRAZOLAM 57236321620 Active Crispin Smith MD Active FLOMAX 0.4 MG ORAL CAPSULE 1 Daily F MADINA 0.4 MG ORAL CAPSULE 428503 TAMSULOSIN HCL Inactive CITALOPRAM HYDROBROMIDE 10 MG ORAL TABLET 1 qDay CITALOPRAM HYDROBROMIDE 10 MG ORAL TABLET 444822 CITALOPRAM HYDROBR OMIDE Inactive Vital Signs Date [...] Range Description Office Visit: CN-kidney stone - 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 Patient 19:42:30 CDT Crispin valerio MD [facility] CPT-70830 Level 4 Est. Patient 14:47:35 CDT Rick singh MD [facility] CPT-03617 Level 2 Est. Patient 15:53:54 CDT Crispin valerio MD [facility] CPT-62945 Level 3 Est. Patient 20:49:21 CDT Crispin valerio MD [facility] Procedures Code Procedure Name Date Entry Date Standard Desc ription CPT-46078 Postop F/U Visit 17:29:32 CDT CPT-01863 Abdomen, 1 view 13:47:34 CDT CPT-94684 Abdomen, 1 view 13:56:21 CDT CPT-59872 Postop F/U Visit 10:40:02 CDT CPT-82404 Bladder Scan 15:53:55 CDT CPT-71087 Bladder Scan 10:11:31 CDT CPT-80722 Postop F/U Visit 10:11:30 CDT CPT-20328 Cystoscopy 20:49:21 CDT CPT-43491 Abd single AP View - XRAY USE ONLY 12:03:21 CDT
--- OUTSIDE RECORDS SUMMARY | 2020-01-01 12:54 | XMS REPORT | Clinical Summary ---
Author Author Admin, Ken Walsh [employer] Address Unknown Phone Unavailable Allergies, Adverse Reactions, [...] TABLET 1 tablet by mouth daily LORATADINE 56712028286 Active Crispin Smith MD Active HYDROCHLOROTHIAZIDE 25 MG ORAL TABLET 1/2 tablet by mouth daily 201 02/02/21 HYDROCHLOROTHIAZIDE 87074596049 Active Crispin Smith MD A ctive CYPROHEPTADINE HCL 4 MG ORAL TABLET 1/2 tab by mouth at bedt melissa fpr frequency CYPROHEPTADINE HCL 89837293785 Active Crispin Swain Active CITALOPRAM HYDROBROMIDE 10 MG ORAL TABLET 1 qDay CITALOPRAM HYDROBROMIDE 66357907316 No Longer Active Crispin Smith MD Active GABAPENTIN 300 MG ORAL CAPSULE by mouth twice a day GABAPENTIN 06590235305 Active Rick Cutler MD Active FLOMAX 0.4 MG ORAL CAPSULE 1 Daily TAMSULOSI N HCL 58236691717 No Longer Active Crispin Smith MD Active LISINOPRIL 20 MG ORAL TABLET 1 tablet by mouth daily LISINOPRIL 68832742921 Active Crispin Smith MD Active ALPRAZOLAM 0.25 MG ORAL TABLET 1 tablet by mouth twice a day as needed for stress ALPRAZOLAM 07278924572 Active Crispin Smith MD Active FLOMAX 0.4 MG ORAL CAPSULE 1 Daily F MADINA 0.4 MG ORAL CAPSULE 213425 TAMSULOSIN HCL Inactive CITALOPRAM HYDROBROMIDE 10 MG ORAL TABLET 1 qDay CITALOPRAM HYDROBROMIDE 10 MG ORAL TABLET 656920 CITALOPRAM HYDROBR OMIDE Inactive Vital Signs Date [...] Range Description 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 Patient 19:42:30 CDT Crispin valerio MD [facility] CPT-97511 Level 4 Est. Patient 14:47:35 CDT Rick singh MD [facility] CPT-65706 Level 2 Est. Patient 15:53:54 CDT Crispin valerio MD [facility] CPT-47518 Level 3 Est. Patient 20:49:21 CDT Crispin valerio MD [facility] Procedures Code Procedure Name Date Entry Date Standard Desc ription CPT-89791 Abdomen, 1 view 10:02:40 CDT CPT-75307 Postop F/U Visit 17:29:32 CDT CPT-98964 Abdomen, 1 view 13:47:34 CDT CPT-34090 Abdomen, 1 view 13:56:21 CDT CPT-72118 Postop F/U Visit 10:40:02 CDT CPT-05494 Bladder Scan 15:53:55 CDT CPT-04725 Bladder Scan 10:11:31 CDT CPT-01575 Postop F/U Visit 10:11:30 CDT CPT-01830 Cystoscopy 20:49:21 CDT CPT-41078 Abd single AP View - XRAY USE ONLY 12:03:21 CDT
--- OUTSIDE RECORDS SUMMARY | 2020-01-01 12:54 | XMS REPORT | Clinical Summary ---
Author Author Admin, Ken Luo Organization [employer] Address Unknown Phone Unavailable Allergies, Adverse Reactions, [...] CAPSULE 1 cap by mouth daily CHOLECALCIFEROL 25104962846 Active Crispin Smith MD Active HYDROCHLOROTHIAZIDE 25 MG ORAL TABLET 1/2 tablet by mouth daily HYDROCHLOROTHIAZIDE 37577674194 No Longer Active Crispin Smith MD Active BACLOFEN 10 MG ORAL TABLET 1 tab by mouth three times daily BACLOFEN 18330594449 Active Crispin Smith MD Active TEGRETOL-XR 200 MG ORAL TABLET EXTENDED RELEASE 12 CHRISTIANO R 1 tab by mouth twice daily CARBAMAZEPINE 30287981371 Active Crispin Smith MD Active LORATADINE 10 MG ORAL TABLET 1 tablet by mouth daily LORATADINE 24922699713 Active Crispin Smith MD Active CYPROHEPTADINE HCL 4 MG ORAL TABLET 1/2 tab by mouth at bedt melissa fpr frequency CYPROHEPTADINE HCL 54384705433 Active Crispin Swain Active CITALOPRAM HYDROBROMIDE 10 MG ORAL TABLET 1 qDay CITALOPRAM HYDROBROMIDE 96988616014 No Longer Active Crispin Smith MD Active GABAPENTIN 300 MG ORAL CAPSULE by mouth twice a day GABAPENTIN 56907024424 Active Rick Cutler MD Active FLOMAX 0.4 MG ORAL CAPSULE 1 Daily TAMSULOSI N HCL 27250519461 No Longer Active Crispin Smith MD Active LISINOPRIL 20 MG ORAL TABLET 1 tablet by mouth daily LISINOPRIL 21679425555 Active Crispin Smith MD Active ALPRAZOLAM 0.25 MG ORAL TABLET 1 tablet by mouth twice a day as needed for stress ALPRAZOLAM 22665514275 Active Crispin Smith MD Active FLOMAX 0.4 MG ORAL CAPSULE 1 Daily F MADINA 0.4 MG ORAL CAPSULE 061620 TAMSULOSIN HCL Inactive CITALOPRAM HYDROBROMIDE 10 MG ORAL TABLET 1 qDay CITALOPRAM HYDROBROMIDE 10 MG ORAL TABLET 756660 CITALOPRAM HYDROBR OMIDE Inactive HYDROCHLOROTHIAZIDE 25 MG ORAL TABLET 1/2 tablet by mouth daily HYDROCHLOROTHIAZIDE 25 MG ORAL TABLET 863237 HYDROCHLOR OTHIAZIDE Inactive Vital Signs Date Name [...] Range Description Office Visit: CN-kidney stone - 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 Patient 19:42:30 CDT Crispin valerio MD [facility] CPT-18171 Level 4 Est. Patient 14:47:35 CDT Rick singh MD [facility] CPT-27751 Level 2 Est. Patient 15:53:54 CDT Crispin valerio MD [facility] CPT-54148 Level 3 Est. Patient 20:49:21 CDT Crispin valerio MD [facility] Procedures Code Procedure Name Date Entry Date Standard Desc ription CPT-61139 Postop F/U Visit 12:24:03 CDT CPT-09540 Abdomen, 1 view 10:02:40 CDT CPT-49523 Postop F/U Visit 17:29:32 CDT CPT-95261 Abdomen, 1 view 13:47:34 CDT CPT-91562 Abdomen, 1 view 13:56:21 CDT CPT-06015 Postop F/U Visit 10:40:02 CDT CPT-74532 Bladder Scan 15:53:55 CDT CPT-77978 Bladder Scan 10:11:31 CDT CPT-91088 Postop F/U Visit 10:11:30 CDT CPT-62390 Cystoscopy 20:49:21 CDT CPT-90368 Abd single AP View - XRAY USE ONLY 12:03:21 CDT
--- OUTSIDE RECORDS SUMMARY | 2020-01-01 12:54 | XMS REPORT | Clinical Summary ---
Author Author Admin, Ken Luo [employer] Address Unknown Phone Unavailable Allergies, Adverse Reactions, [...] TABLET 1 tablet by mouth daily LORATADINE 12347892621 Active Crispin Smith MD Active HYDROCHLOROTHIAZIDE 25 MG ORAL TABLET 1/2 tablet by mouth daily 201 02/02/21 HYDROCHLOROTHIAZIDE 24699561096 Active Crispin Smith MD A ctive CYPROHEPTADINE HCL 4 MG ORAL TABLET 1/2 tab by mouth at bedt melissa fpr frequency CYPROHEPTADINE HCL 74238910911 Active Crispin Swain Active CITALOPRAM HYDROBROMIDE 10 MG ORAL TABLET 1 qDay CITALOPRAM HYDROBROMIDE 60173843200 No Longer Active Crispin Smith MD Active GABAPENTIN 300 MG ORAL CAPSULE by mouth twice a day GABAPENTIN 80929123657 Active Rick Cutler MD Active FLOMAX 0.4 MG ORAL CAPSULE 1 Daily TAMSULOSI N HCL 72349783736 No Longer Active Crispin Smith MD Active LISINOPRIL 20 MG ORAL TABLET 1 tablet by mouth daily LISINOPRIL 69129137508 Active Crispin Smith MD Active ALPRAZOLAM 0.25 MG ORAL TABLET 1 tablet by mouth twice a day as needed for stress ALPRAZOLAM 57408855376 Active Crispin Smith MD Active FLOMAX 0.4 MG ORAL CAPSULE 1 Daily F MADINA 0.4 MG ORAL CAPSULE 979393 TAMSULOSIN HCL Inactive CITALOPRAM HYDROBROMIDE 10 MG ORAL TABLET 1 qDay CITALOPRAM HYDROBROMIDE 10 MG ORAL TABLET 437988 CITALOPRAM HYDROBR OMIDE Inactive Vital Signs Date [...] Range Description Office Visit: CN-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 Patient 19:42:30 CDT Crispin valerio MD [facility] CPT-54064 Level 4 Est. Patient 14:47:35 CDT Rick singh MD [facility] CPT-63483 Level 2 Est. Patient 15:53:54 CDT Crispin valerio MD [facility] CPT-13529 Level 3 Est. Patient 20:49:21 CDT Crispin valerio MD [facility] Procedures Code Procedure Name Date Entry Date Standard Desc ription CPT-56245 Postop F/U Visit 17:29:32 CDT CPT-27918 Abdomen, 1 view 13:47:34 CDT CPT-34353 Abdomen, 1 view 13:56:21 CDT CPT-69882 Postop F/U Visit 10:40:02 CDT CPT-89379 Bladder Scan 15:53:55 CDT CPT-14108 Bladder Scan 10:11:31 CDT CPT-69969 Postop F/U Visit 10:11:30 CDT CPT-83329 Cystoscopy 20:49:21 CDT CPT-93564 Abd single AP View - XRAY USE ONLY 12:03:21 CDT
--- OUTSIDE RECORDS SUMMARY | 2020-01-01 12:54 | XMS REPORT | Clinical Summary ---
Author Author Admin, Ken Luo Organization [employer] Address Unknown Phone Unavailable Allergies, Adverse Reactions, [...] TABLET 1 tablet by mouth daily LORATADINE 53048658103 Active Crispin Smith MD Active HYDROCHLOROTHIAZIDE 25 MG ORAL TABLET 1/2 tablet by mouth daily 201 02/02/21 HYDROCHLOROTHIAZIDE 32900994706 Active Crispin Smith MD A ctive CYPROHEPTADINE HCL 4 MG ORAL TABLET 1/2 tab by mouth at bedt melissa fpr frequency CYPROHEPTADINE HCL 53824666438 Active Crispin Swain Active CITALOPRAM HYDROBROMIDE 10 MG ORAL TABLET 1 qDay CITALOPRAM HYDROBROMIDE 33063904905 No Longer Active Crispin Smith MD Active GABAPENTIN 300 MG ORAL CAPSULE by mouth twice a day GABAPENTIN 51148069039 Active Rick Cutler MD Active FLOMAX 0.4 MG ORAL CAPSULE 1 Daily TAMSULOSI N HCL 07207117628 No Longer Active Crispin Smith MD Active LISINOPRIL 20 MG ORAL TABLET 1 tablet by mouth daily LISINOPRIL 50150006834 Active Crispin Smith MD Active ALPRAZOLAM 0.25 MG ORAL TABLET 1 tablet by mouth twice a day as needed for stress ALPRAZOLAM 07667521042 Active Crispin Smith MD Active FLOMAX 0.4 MG ORAL CAPSULE 1 Daily F MADINA 0.4 MG ORAL CAPSULE 726683 TAMSULOSIN HCL Inactive CITALOPRAM HYDROBROMIDE 10 MG ORAL TABLET 1 qDay CITALOPRAM HYDROBROMIDE 10 MG ORAL TABLET 390105 CITALOPRAM HYDROBR OMIDE Inactive Vital Signs Date [...] Range Description Office Visit: CN-kidney 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 Patient 19:42:30 CDT Crispin valerio MD [facility] CPT-40471 Level 4 Est. Patient 14:47:35 CDT Rick singh MD [facility] CPT-87218 Level 2 Est. Patient 15:53:54 CDT Crispin valerio MD [facility] CPT-57189 Level 3 Est. Patient 20:49:21 CDT Crispin valerio MD [facility] Procedures Code Procedure Name Date Entry Date Standard Desc ription CPT-24994 Postop F/U Visit 17:29:32 CDT CPT-19043 Abdomen, 1 view 13:47:34 CDT CPT-22045 Abdomen, 1 view 13:56:21 CDT CPT-94705 Postop F/U Visit 10:40:02 CDT CPT-85222 Bladder Scan 15:53:55 CDT CPT-82252 Bladder Scan 10:11:31 CDT CPT-05584 Postop F/U Visit 10:11:30 CDT CPT-53240 Cystoscopy 20:49:21 CDT CPT-62740 Abd single AP View - XRAY USE ONLY 12:03:21 CDT
--- OUTSIDE RECORDS SUMMARY | 2020-01-01 12:55 | XMS REPORT | Clinical Summary ---
Author Author Admin, Ken Luo Organization [employer] Address Unknown Phone Unavailable Allergies, Adverse Reactions, [...] CAPSULE by mouth twice a day GABAPENTIN 30700606094 Active Rick Cutler MD Active FLOMAX 0.4 MG CAPS 1 Daily TAMSULOSIN HCL 5456 0342688 No Longer Active Crispin Smith MD Active LISINOPRIL 20 MG TABS 1 tablet by mouth daily LISINOPRIL 30367703303 Active Crispin Smith MD Active CITALOPRAM HYDROBROMIDE 10 MG TABS 1 qDay C ITALOPRAM HYDROBROMIDE 31666927825 Active Crispin Smith MD Active ALPRAZOLAM 0.25 MG TAB 1 tablet by mouth twice a day as need ed for stress ALPRAZOLAM 91648033200 Active Crispin Smith MD Active FLOMAX 0.4 MG CAPS 1 Daily FLOMAX 0.4 MG CAPS 955029 TAMSULOSIN HCL Inactive Vital Signs Date Name [...] d Encounters Code Encounter Date Provider Facility CPT-14952 Level 4 Est. Patient 14:47:35 CDT Rick singh MD [facility] CPT-58496 Level 2 Est. Patient 15:53:54 CDT Crispin valerio MD [facility] CPT-52864 Level 3 Est. Patient 20:49:21 CDT Crispin valerio MD [facility] Procedures Code Procedure Name Date Entry Date Standard Desc ription CPT-18318 Bladder Scan 15:53:55 CDT CPT-83178 Bladder Scan 10:11:31 CDT CPT-68498 Postop F/U Visit 10:11:30 CDT CPT-17741 Cystoscopy 20:49:21 CDT CPT-52592 Abd single AP View - XRAY USE ONLY 12:03:21 CDT
--- OUTSIDE RECORDS SUMMARY | 2020-01-01 12:55 | XMS REPORT | Clinical Summary ---
Author Author Admin, Ken Luo Organization [employer] Address Unknown Phone Unavailable Allergies, Adverse Reactions, Alerts Allergy Name Reaction Description Start Date Severity Status Pr ovider VERAPAMIL Critical Active Crispin العلي on SERTRALINE HCL Critical Active Crispin drake MD IBUPROFEN Critical Active Crispin العلي on NICOTINE STEP 1 Critical Active Crisipn valerio MD NAPROXEN SODIUM Critical Active Crispin [...] CAPSULE by mouth twice a day GABAPENTIN 79439345851 Active Rick Cutler MD Active FLOMAX 0.4 MG CAPS 1 Daily TAMSULOSIN HCL 5456 8732519 No Longer Active Crispin Smith MD Active LISINOPRIL 20 MG TABS 1 tablet by mouth daily LISINOPRIL 64754179431 Active Crispin Smith MD Active CITALOPRAM HYDROBROMIDE 10 MG TABS 1 qDay C ITALOPRAM HYDROBROMIDE 73013400721 Active Crispin Smith MD Active ALPRAZOLAM 0.25 MG TAB 1 tablet by mouth twice a day as need ed for stress ALPRAZOLAM 58004279316 Active Crispin Smith MD Active FLOMAX 0.4 MG CAPS 1 Daily FLOMAX 0.4 MG CAPS 213362 TAMSULOSIN HCL Inactive Vital Signs Date Name [...] d Encounters Code Encounter Date Provider Facility CPT-20052 Level 4 Est. Patient 14:47:35 CDT Rick singh MD [facility] CPT-42289 Level 2 Est. Patient 15:53:54 CDT Crispin valerio MD [facility] CPT-58410 Level 3 Est. Patient 20:49:21 CDT Crispin valerio MD [facility] Procedures Code Procedure Name Date Entry Date Standard Desc ription CPT-11682 Bladder Scan 15:53:55 CDT CPT-66640 Bladder Scan 10:11:31 CDT CPT-83349 Postop F/U Visit 10:11:30 CDT CPT-63339 Cystoscopy 20:49:21 CDT CPT-89763 Abd single AP View - XRAY USE ONLY 12:03:21 CDT
--- OUTSIDE RECORDS SUMMARY | 2020-01-01 12:55 | XMS REPORT | Clinical Summary ---
Author Author Admin, Ken Luo Organization [employer] Address Unknown Phone Unavailable Allergies, Adverse Reactions, [...] CAPSULE by mouth twice a day GABAPENTIN 00593850869 Active Rick Cutler MD Active FLOMAX 0.4 MG CAPS 1 Daily TAMSULOSIN HCL 5456 4615329 No Longer Active Crispin Smith MD Active LISINOPRIL 20 MG TABS 1 tablet by mouth daily LISINOPRIL 76282637822 Active Crispin Smith MD Active CITALOPRAM HYDROBROMIDE 10 MG TABS 1 qDay C ITALOPRAM HYDROBROMIDE 94965789677 Active Crispin Smith MD Active ALPRAZOLAM 0.25 MG TAB 1 tablet by mouth twice a day as need ed for stress ALPRAZOLAM 13485467114 Active Crispin Smith MD Active FLOMAX 0.4 MG CAPS 1 Daily FLOMAX 0.4 MG CAPS 886673 TAMSULOSIN HCL Inactive Vital Signs Date Name [...] d Encounters Code Encounter Date Provider Facility CPT-27472 Level 4 Est. Patient 14:47:35 CDT Rick singh MD [facility] CPT-30952 Level 2 Est. Patient 15:53:54 CDT Crispin valerio MD [facility] CPT-25305 Level 3 Est. Patient 20:49:21 CDT Crispin valerio MD [facility] Procedures Code Procedure Name Date Entry Date Standard Desc ription CPT-12838 Bladder Scan 15:53:55 CDT CPT-52604 Bladder Scan 10:11:31 CDT CPT-09601 Postop F/U Visit 10:11:30 CDT CPT-98346 Cystoscopy 20:49:21 CDT CPT-03946 Abd single AP View - XRAY USE ONLY 12:03:21 CDT
--- OUTSIDE RECORDS SUMMARY | 2020-01-01 12:55 | XMS REPORT | Clinical Summary ---
Author Author Admin, Ken Luo Organization [employer] Address Unknown Phone Unavailable Allergies, Adverse [...] CAPSULE by mouth twice a day GABAPENTIN 42168912272 Active Rick Cutler MD Active FLOMAX 0.4 MG CAPS 1 Daily TAMSULOSIN HCL 5456 0647808 No Longer Active Crispin Smith MD Active LISINOPRIL 20 MG TABS 1 tablet by mouth daily LISINOPRIL 55770981281 Active Crispin Smith MD Active CITALOPRAM HYDROBROMIDE 10 MG TABS 1 qDay C ITALOPRAM HYDROBROMIDE 96958444562 Active Crispin Smith MD Active ALPRAZOLAM 0.25 MG TAB 1 tablet by mouth twice a day as need ed for stress ALPRAZOLAM 29928157571 Active Crispin Smith MD Active FLOMAX 0.4 MG CAPS 1 Daily FLOMAX 0.4 MG CAPS 727793 TAMSULOSIN HCL Inactive Vital Signs Date Name Value Unit Range Description blood pressure, diastolic 86 mm[Hg] BP funk [...] d Encounters Code Encounter Date Provider Facility CPT-86480 Level 4 Est. Patient 14:47:35 CDT Rick singh MD [facility] CPT-35282 Level 2 Est. Patient 15:53:54 CDT Crispin valerio MD [facility] CPT-94300 Level 3 Est. Patient 20:49:21 CDT Crispin valreio MD [facility] Procedures Code Procedure Name Date Entry Date Standard Desc ription CPT-10573 Postop F/U Visit 10:40:02 CDT CPT-48348 Bladder Scan 15:53:55 CDT CPT-83375 Bladder Scan 10:11:31 CDT CPT-11409 Postop F/U Visit 10:11:30 CDT CPT-40838 Cystoscopy 20:49:21 CDT CPT-79910 Abd single AP View - XRAY USE ONLY 12:03:21 CDT
--- OUTSIDE RECORDS SUMMARY | 2020-01-01 12:55 | XMS REPORT | Clinical Summary ---
Author Author Admin, Ken Walsh [employer] Address Unknown Phone Unavailable Allergies, Adverse Reactions, Alerts Allergy Name Reaction Description Start Date Severity Status Pr ovider VERAPAMIL Critical Active Crispin العلي on SERTRALINE HCL Critical Active J Dakota drake MD IBUPROFEN Critical Active Crispin العلي [...] Generic Name NDC Status Provider Patient Instruction Drug Treatment Unknown - unknown Encounters Code Encounter Date Provider Facility CPT-30054 Level 3 Est. Patient 20:49:21 CDT Crispin valerio MD [facility] Procedures Code Procedure Name Date Entry Date Standard Desc ription CPT-48710 Cystoscopy 20:49:21 CDT CPT-16568 Abd single AP View - XRAY USE ONLY 12:03:21 CDT
--- OUTSIDE RECORDS SUMMARY | 2020-01-01 12:55 | XMS REPORT | Clinical Summary ---
Author Author Admin, Ken Walsh [email or web address] Address Unknown Phone Unavailable Allergies, Adverse Reactions, [...] unknown Encounters Code Encounter Date Provider Facility CPT-74304 Level 3 Est. Patient 20:49:21 CDT Crispin valerio MD [email or web address] Procedures Code Procedure Name Date Entry Date Standard Desc ription CPT-59280 Cystoscopy 20:49:21 CDT CPT-47171 Abd single AP View - XRAY USE ONLY 12:03:21 CDT
--- OUTSIDE RECORDS SUMMARY | 2020-01-01 12:55 | XMS REPORT | Clinical Summary ---
Author Author Admin, Ken Walsh [email or web address] Address Unknown Phone Unavailable Allergies, Adverse Reactions, [...] MG CAPS 1 Daily TAMSULOSIN HCL 5456 9855082 No Longer Active Crispin Smith MD Active LISINOPRIL 20 MG TABS 1 tablet by mouth daily LISINOPRIL 21791703558 Active Crispin Smith MD Active CITALOPRAM HYDROBROMIDE 10 MG TABS 1 qDay C ITALOPRAM HYDROBROMIDE 34683506046 Active Crispin Smith MD Active ALPRAZOLAM 0.25 MG TAB 1 tablet by mouth twice a day as need ed for stress ALPRAZOLAM 86089180847 Active Crispin Smith MD Active FLOMAX 0.4 MG CAPS 1 Daily FLOMAX 0.[address] [facility] 810002 TAMSULOSIN HCL Inactive Vital Signs Date Name [...] d Encounters Code Encounter Date Provider Facility CPT-85111 Level 2 Est. Patient 15:53:54 CDT Crispin valerio MD [facility] CPT-42794 Level 3 Est. Patient 20:49:21 CDT Crispin valerio MD [facility] Procedures Code Procedure Name Date Entry Date Standard Desc ription CPT-32741 Bladder Scan 15:53:55 CDT CPT-41364 Bladder Scan 10:11:31 CDT CPT-33483 Postop F/U Visit 10:11:30 CDT CPT-93318 Cystoscopy 20:49:21 CDT CPT-59915 Abd single AP View - XRAY USE ONLY 12:03:21 CDT
--- OUTSIDE RECORDS SUMMARY | 2020-01-01 12:55 | XMS REPORT | Clinical Summary ---
Author Author Admin, Ken Walsh [employer] Address Unknown Phone Unavailable Allergies, Adverse Reactions, [...] MG CAPS 1 Daily TAMSULOSIN HCL 5456 7491841 No Longer Active Crispin Smith MD Active LISINOPRIL 20 MG TABS 1 tablet by mouth daily LISINOPRIL 54535111653 Active Crispin Smith MD Active CITALOPRAM HYDROBROMIDE 10 MG TABS 1 qDay C ITALOPRAM HYDROBROMIDE 20712703265 Active Crispin Smith MD Active ALPRAZOLAM 0.25 MG TAB 1 tablet by mouth twice a day as need ed for stress ALPRAZOLAM 77648872349 Active Crispin Smith MD Active FLOMAX 0.4 MG CAPS 1 Daily FLOMAX 0.4 MG [facility] 000243 TAMSULOSIN HCL Inactive Vital Signs Date Name [...] d Encounters Code Encounter Date Provider Facility CPT-58451 Level 2 Est. Patient 15:53:54 CDT Crispin valerio MD [facility] CPT-06819 Level 3 Est. Patient 20:49:21 CDT Crispin valerio MD [facility] Procedures Code Procedure Name Date Entry Date Standard Desc ription CPT-20102 Bladder Scan 15:53:55 CDT CPT-31778 Bladder Scan 10:11:31 CDT CPT-11231 Postop F/U Visit 10:11:30 CDT CPT-53125 Cystoscopy 20:49:21 CDT CPT-04637 Abd single AP View - XRAY USE ONLY 12:03:21 CDT
--- OUTSIDE RECORDS SUMMARY | 2020-01-01 12:55 | XMS REPORT | Clinical Summary ---
Author Author Admin, Ken Walsh [email or web address] Address Unknown Phone Unavailable Allergies, Adverse Reactions, [...] TABLET 1 tablet by mouth daily LORATADINE 27269552742 Active Crispin Smith MD Active HYDROCHLOROTHIAZIDE 25 MG ORAL TABLET 1/2 tablet by mouth daily 201 02/02/21 HYDROCHLOROTHIAZIDE 09379166161 Active Crispin Smith MD A ctive CYPROHEPTADINE HCL 4 MG ORAL TABLET 1/2 tab by mouth at bedt melissa fpr frequency CYPROHEPTADINE HCL 10297495304 Active Crispin Swain Active CITALOPRAM HYDROBROMIDE 10 MG ORAL TABLET 1 qDay CITALOPRAM HYDROBROMIDE 44064503033 No Longer Active Crispin Smith MD Active GABAPENTIN 300 MG ORAL CAPSULE by mouth twice a day GABAPENTIN 32313949381 Active Rick Cutler MD Active FLOMAX 0.4 MG ORAL CAPSULE 1 Daily TAMSULOSI N HCL 84868678594 No Longer Active Crispin Smith MD Active LISINOPRIL 20 MG ORAL TABLET 1 tablet by mouth daily LISINOPRIL 61847319639 Active Crispin Smith MD Active ALPRAZOLAM 0.25 MG ORAL TABLET 1 tablet by mouth twice a day as needed for stress ALPRAZOLAM 47968822551 Active Crispin Smith MD Active FLOMAX 0.4 MG ORAL CAPSULE 1 Daily F MADINA 0.4 MG ORAL CAPSULE 473241 TAMSULOSIN HCL Inactive CITALOPRAM HYDROBROMIDE 10 MG ORAL TABLET 1 qDay CITALOPRAM HYDROBROMIDE 10 MG ORAL TABLET 157705 CITALOPRAM HYDROBR OMIDE Inactive Vital Signs Date [...] Range Description Office Visit: 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 Patient 19:42:30 CDT Crispin valerio MD [facility] CPT-75272 Level 4 Est. Patient 14:47:35 CDT Rick singh MD [facility] CPT-99377 Level 2 Est. Patient 15:53:54 CDT Crispin valerio MD [facility] CPT-95773 Level 3 Est. Patient 20:49:21 CDT Crispin valerio MD [facility] Procedures Code Procedure Name Date Entry Date Standard Desc ription CPT-93741 Postop F/U Visit 17:29:32 CDT CPT-78725 Abdomen, 1 view 13:47:34 CDT CPT-92736 Abdomen, 1 view 13:56:21 CDT CPT-77473 Postop F/U Visit 10:40:02 CDT CPT-95289 Bladder Scan 15:53:55 CDT CPT-34396 Bladder Scan 10:11:31 CDT CPT-50007 Postop F/U Visit 10:11:30 CDT CPT-05643 Cystoscopy 20:49:21 CDT CPT-07093 Abd single AP View - XRAY USE ONLY 12:03:21 CDT
--- OUTSIDE RECORDS SUMMARY | 2020-01-01 12:55 | XMS REPORT | Clinical Summary ---
Author Author Admin, Ken Luo Organization [employer] Address Unknown Phone Unavailable Allergies, Adverse Reactions, [...] Instructions Start Date Stop Date Generic Name ND Status Provider Patient Instruction GABAPENTIN 300 MG ORAL CAPSULE by mouth twice a day GABAPENTIN 77777135561 Active Rick Cutler MD Active FLOMAX 0.4 MG ORAL CAPSULE 1 Daily TAMSULOSI N HCL 85784319586 No Longer Active Crispin Smith MD Active LISINOPRIL 20 MG ORAL TABLET 1 tablet by mouth daily LISINOPRIL 00147553695 Active Crispin Smith MD Active CITALOPRAM HYDROBROMIDE 10 MG ORAL TABLET 1 qDay CITALOPRAM HYDROBROMIDE 77759186786 Active Crispin Smith MD Active ALPRAZOLAM 0.25 MG ORAL TABLET 1 tablet by mouth twice a day as needed for stress ALPRAZOLAM 77909540041 Active Crispin Smith MD Active FLOMAX 0.4 MG ORAL CAPSULE 1 Daily F MADINA 0.4 MG ORAL CAPSULE 919515 TAMSULOSIN HCL Inactive Vital Signs Date Name [...] weight E&M 159 [lb_av] Weight Measure d Encounters Code Encounter Date Provider Facility CPT-80582 Level 4 Est. Patient 14:47:35 CDT Rick singh MD [facility] CPT-23091 Level 2 Est. Patient 15:53:54 CDT Crispin valerio MD [facility] CPT-51041 Level 3 Est. Patient 20:49:21 CDT Crispin valerio MD [facility] Procedures Code Procedure Name Date Entry Date Standard Desc ription CPT-70574 Abdomen, 1 view 13:56:21 CDT CPT-33741 Postop F/U Visit 10:40:02 CDT CPT-14568 Bladder Scan 15:53:55 CDT CPT-85200 Bladder Scan 10:11:31 CDT CPT-08308 Postop F/U Visit 10:11:30 CDT CPT-57405 Cystoscopy 20:49:21 CDT CPT-96331 Abd single AP View - XRAY USE ONLY 12:03:21 CDT
--- OUTSIDE RECORDS SUMMARY | 2020-01-01 12:55 | XMS REPORT | Clinical Summary ---
Author Author Admin, Ken Luo Organization [employer] Address Unknown Phone Unavailable Allergies, Adverse Reactions, [...] CAPSULE by mouth twice a day GABAPENTIN 29706077003 Active Rick Cutler MD Active FLOMAX 0.4 MG CAPS 1 Daily TAMSULOSIN HCL 5456 4538343 No Longer Active Crispin Smith MD Active LISINOPRIL 20 MG TABS 1 tablet by mouth daily LISINOPRIL 76420122577 Active Crispin Smith MD Active CITALOPRAM HYDROBROMIDE 10 MG TABS 1 qDay C ITALOPRAM HYDROBROMIDE 13996420254 Active Crispin Smith MD Active ALPRAZOLAM 0.25 MG TAB 1 tablet by mouth twice a day as need ed for stress ALPRAZOLAM 51874861298 Active Crispin Smith MD Active FLOMAX 0.4 MG CAPS 1 Daily FLOMAX 0.4 MG CAPS 379984 TAMSULOSIN HCL Inactive Vital Signs Date Name [...] d Encounters Code Encounter Date Provider Facility CPT-80521 Level 4 Est. Patient 14:47:35 CDT Rick singh MD [facility] CPT-65105 Level 2 Est. Patient 15:53:54 CDT Crispin valerio MD [facility] CPT-55023 Level 3 Est. Patient 20:49:21 CDT Crispin valerio MD [facility] Procedures Code Procedure Name Date Entry Date Standard Desc ription CPT-40660 Postop F/U Visit 10:40:02 CDT CPT-16936 Bladder Scan 15:53:55 CDT CPT-01002 Bladder Scan 10:11:31 CDT CPT-84507 Postop F/U Visit 10:11:30 CDT CPT-14453 Cystoscopy 20:49:21 CDT CPT-17678 Abd single AP View - XRAY USE ONLY 12:03:21 CDT
--- OUTSIDE RECORDS SUMMARY | 2020-01-01 12:55 | XMS REPORT | Clinical Summary ---
Author Author Admin, Ken Luo Organization [employer] Address Unknown Phone Unavailable Allergies, Adverse Reactions, [...] TABLET 1 tablet by mouth daily LORATADINE 13742122152 Active Crispin Smith MD Active HYDROCHLOROTHIAZIDE 25 MG ORAL TABLET 1/2 tablet by mouth daily 201 02/02/21 HYDROCHLOROTHIAZIDE 32717131259 Active Crispin Smith MD A ctive CYPROHEPTADINE HCL 4 MG ORAL TABLET 1/2 tab by mouth at bedt melissa fpr frequency CYPROHEPTADINE HCL 52810206693 Active Crispin Swain Active CITALOPRAM HYDROBROMIDE 10 MG ORAL TABLET 1 qDay CITALOPRAM HYDROBROMIDE 34784210079 No Longer Active Crispin Smith MD Active GABAPENTIN 300 MG ORAL CAPSULE by mouth twice a day GABAPENTIN 19045345744 Active Rick Cutler MD Active FLOMAX 0.4 MG ORAL CAPSULE 1 Daily TAMSULOSI N HCL 58226881241 No Longer Active Crispin Smith MD Active LISINOPRIL 20 MG ORAL TABLET 1 tablet by mouth daily LISINOPRIL 46686015475 Active Crispin Smith MD Active ALPRAZOLAM 0.25 MG ORAL TABLET 1 tablet by mouth twice a day as needed for stress ALPRAZOLAM 14892092089 Active Crispin Smith MD Active FLOMAX 0.4 MG ORAL CAPSULE 1 Daily F MADINA 0.4 MG ORAL CAPSULE 969392 TAMSULOSIN HCL Inactive CITALOPRAM HYDROBROMIDE 10 MG ORAL TABLET 1 qDay CITALOPRAM HYDROBROMIDE 10 MG ORAL TABLET 067879 CITALOPRAM HYDROBR OMIDE Inactive Vital Signs Date [...] Range Description Office Visit: CN-kidney stone - 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 Patient 19:42:30 CDT Crispin valerio MD [facility] CPT-40968 Level 4 Est. Patient 14:47:35 CDT Rick singh MD [facility] CPT-58715 Level 2 Est. Patient 15:53:54 CDT Crispin valerio MD [facility] CPT-27120 Level 3 Est. Patient 20:49:21 CDT Crispin valerio MD [facility] Procedures Code Procedure Name Date Entry Date Standard Desc ription CPT-86539 Postop F/U Visit 17:29:32 CDT CPT-89183 Abdomen, 1 view 13:47:34 CDT CPT-02915 Abdomen, 1 view 13:56:21 CDT CPT-16641 Postop F/U Visit 10:40:02 CDT CPT-77215 Bladder Scan 15:53:55 CDT CPT-10145 Bladder Scan 10:11:31 CDT CPT-35440 Postop F/U Visit 10:11:30 CDT CPT-50813 Cystoscopy 20:49:21 CDT CPT-09661 Abd single AP View - XRAY USE ONLY 12:03:21 CDT
--- OUTSIDE RECORDS SUMMARY | 2020-01-01 12:55 | XMS REPORT | Clinical Summary ---
Author Author Admin, Ken Walsh [employer] Address Unknown Phone Unavailable Allergies, Adverse Reactions, [...] unknown Encounters Code Encounter Date Provider Facility CPT-87609 Level 3 Est. Patient 20:49:21 CDT Crispin valerio MD [employer] Procedures Code Procedure Name Date Entry Date Standard Desc ription CPT-60520 Cystoscopy 20:49:21 CDT CPT-54738 Abd single AP View - XRAY USE ONLY 12:03:21 CDT
--- OUTSIDE RECORDS SUMMARY | 2020-01-01 12:56 | XMS REPORT | Clinical Summary ---
Author Author Admin, Ken Luo Organization [employer] Address Unknown Phone Unavailable Allergies, Adverse Reactions, [...] TABLET 1 tablet by mouth daily LORATADINE 39903131689 Active Crispin Smith MD Active HYDROCHLOROTHIAZIDE 25 MG ORAL TABLET 1/2 tablet by mouth daily 201 02/02/21 HYDROCHLOROTHIAZIDE 48201504691 Active Crispin Smith MD A ctive CYPROHEPTADINE HCL 4 MG ORAL TABLET 1/2 tab by mouth at bedt melissa fpr frequency CYPROHEPTADINE HCL 02950981083 Active Crispin Swain Active CITALOPRAM HYDROBROMIDE 10 MG ORAL TABLET 1 qDay CITALOPRAM HYDROBROMIDE 83438837846 No Longer Active Crispin Smith MD Active GABAPENTIN 300 MG ORAL CAPSULE by mouth twice a day GABAPENTIN 79178010504 Active Rick Cutler MD Active FLOMAX 0.4 MG ORAL CAPSULE 1 Daily TAMSULOSI N HCL 64961671583 No Longer Active Crispin Smith MD Active LISINOPRIL 20 MG ORAL TABLET 1 tablet by mouth daily LISINOPRIL 27823325476 Active Crispin Smith MD Active ALPRAZOLAM 0.25 MG ORAL TABLET 1 tablet by mouth twice a day as needed for stress ALPRAZOLAM 13905721401 Active Crispin Smith MD Active FLOMAX 0.4 MG ORAL CAPSULE 1 Daily F MADINA 0.4 MG ORAL CAPSULE 871998 TAMSULOSIN HCL Inactive CITALOPRAM HYDROBROMIDE 10 MG ORAL TABLET 1 qDay CITALOPRAM HYDROBROMIDE 10 MG ORAL TABLET 720317 CITALOPRAM HYDROBR OMIDE Inactive Vital Signs Date [...] Range Description Office Visit: CN-kidney 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 Patient 19:42:30 CDT Crispin valerio MD [facility] CPT-21094 Level 4 Est. Patient 14:47:35 CDT Rick singh MD [facility] CPT-05173 Level 2 Est. Patient 15:53:54 CDT Crispin valerio MD [facility] CPT-11390 Level 3 Est. Patient 20:49:21 CDT Crispin valerio MD [facility] Procedures Code Procedure Name Date Entry Date Standard Desc ription CPT-03524 Postop F/U Visit 17:29:32 CDT CPT-19357 Abdomen, 1 view 13:47:34 CDT CPT-26952 Abdomen, 1 view 13:56:21 CDT CPT-13999 Postop F/U Visit 10:40:02 CDT CPT-90994 Bladder Scan 15:53:55 CDT CPT-95292 Bladder Scan 10:11:31 CDT CPT-27293 Postop F/U Visit 10:11:30 CDT CPT-37662 Cystoscopy 20:49:21 CDT CPT-84514 Abd single AP View - XRAY USE ONLY 12:03:21 CDT
--- OUTSIDE RECORDS SUMMARY | 2020-01-01 12:56 | XMS REPORT | Clinical Summary ---
Author Author Admin, Ken Luo Organization [employer] Address Unknown Phone Unavailable Allergies, Adverse Reactions, [...] CAPSULE by mouth twice a day GABAPENTIN 36190501161 Active Rick Cutler MD Active FLOMAX 0.4 MG CAPS 1 Daily TAMSULOSIN HCL 5456 5210952 No Longer Active Crispin Smith MD Active LISINOPRIL 20 MG TABS 1 tablet by mouth daily LISINOPRIL 60120453884 Active Crispin Smith MD Active CITALOPRAM HYDROBROMIDE 10 MG TABS 1 qDay C ITALOPRAM HYDROBROMIDE 62143975538 Active Crispin Smith MD Active ALPRAZOLAM 0.25 MG TAB 1 tablet by mouth twice a day as need ed for stress ALPRAZOLAM 94100020496 Active Crispin Smith MD Active FLOMAX 0.4 MG CAPS 1 Daily FLOMAX 0.4 MG CAPS 289254 TAMSULOSIN HCL Inactive Vital Signs Date Name [...] d Encounters Code Encounter Date Provider Facility CPT-32239 Level 4 Est. Patient 14:47:35 CDT Rick singh MD [facility] CPT-89926 Level 2 Est. Patient 15:53:54 CDT Crispin valerio MD [facility] CPT-42410 Level 3 Est. Patient 20:49:21 CDT Crispin valerio MD [facility] Procedures Code Procedure Name Date Entry Date Standard Desc ription CPT-35914 Bladder Scan 15:53:55 CDT CPT-64837 Bladder Scan 10:11:31 CDT CPT-60749 Postop F/U Visit 10:11:30 CDT CPT-62530 Cystoscopy 20:49:21 CDT CPT-16103 Abd single AP View - XRAY USE ONLY 12:03:21 CDT
--- OUTSIDE RECORDS SUMMARY | 2020-01-01 12:56 | XMS REPORT | Clinical Summary ---
Author Author Admin, Ken Luo Organization [employer] Address Unknown Phone Unavailable Allergies, Adverse Reactions, [...] CAPSULE by mouth twice a day GABAPENTIN 92961331057 Active Rick Cutler MD Active FLOMAX 0.4 MG ORAL CAPSULE 1 Daily TAMSULOSI N HCL 16667090204 No Longer Active Crispin Smith MD Active LISINOPRIL 20 MG ORAL TABLET 1 tablet by mouth daily LISINOPRIL 87426044913 Active Crispin Smith MD Active CITALOPRAM HYDROBROMIDE 10 MG ORAL TABLET 1 qDay CITALOPRAM HYDROBROMIDE 39067952540 Active Crispin Smith MD Active ALPRAZOLAM 0.25 MG ORAL TABLET 1 tablet by mouth twice a day as needed for stress ALPRAZOLAM 47039345797 Active Crispin Smith MD Active FLOMAX 0.4 MG ORAL CAPSULE 1 Daily F MADINA 0.4 MG ORAL CAPSULE 892557 TAMSULOSIN HCL Inactive Vital Signs Date Name [...] d Encounters Code Encounter Date Provider Facility CPT-33280 Level 4 Est. Patient 14:47:35 CDT Rick singh MD [facility] CPT-14634 Level 2 Est. Patient 15:53:54 CDT Crispin valerio MD [facility] CPT-54338 Level 3 Est. Patient 20:49:21 CDT Crispin valerio MD [facility] Procedures Code Procedure Name Date Entry Date Standard Desc ription CPT-65008 Postop F/U Visit 10:40:02 CDT CPT-31274 Bladder Scan 15:53:55 CDT CPT-55190 Bladder Scan 10:11:31 CDT CPT-23617 Postop F/U Visit 10:11:30 CDT CPT-35713 Cystoscopy 20:49:21 CDT CPT-06355 Abd single AP View - XRAY USE ONLY 12:03:21 CDT
--- OUTSIDE RECORDS SUMMARY | 2020-01-01 12:56 | XMS REPORT | Clinical Summary ---
Author Author Admin, Ken Walsh [employer] Address Unknown Phone Unavailable Allergies, Adverse Reactions, [...] TABLET 1 tablet by mouth daily LORATADINE 92958288174 Active Crispin Smith MD Active HYDROCHLOROTHIAZIDE 25 MG ORAL TABLET 1/2 tablet by mouth daily 201 02/02/21 HYDROCHLOROTHIAZIDE 06662168177 Active Crispin Smith MD A ctive CYPROHEPTADINE HCL 4 MG ORAL TABLET 1/2 tab by mouth at bedt melissa fpr frequency CYPROHEPTADINE HCL 30065322540 Active Crispin Swain Active CITALOPRAM HYDROBROMIDE 10 MG ORAL TABLET 1 qDay CITALOPRAM HYDROBROMIDE 18333190702 No Longer Active Crispin Smith MD Active GABAPENTIN 300 MG ORAL CAPSULE by mouth twice a day GABAPENTIN 76296487875 Active Rick Cutler MD Active FLOMAX 0.4 MG ORAL CAPSULE 1 Daily TAMSULOSI N HCL 63098694759 No Longer Active Crispin Smith MD Active LISINOPRIL 20 MG ORAL TABLET 1 tablet by mouth daily LISINOPRIL 96330513015 Active Crispin Smith MD Active ALPRAZOLAM 0.25 MG ORAL TABLET 1 tablet by mouth twice a day as needed for stress ALPRAZOLAM 53760964748 Active Crispin Smith MD Active FLOMAX 0.4 MG ORAL CAPSULE 1 Daily F MADINA 0.4 MG ORAL CAPSULE 342912 TAMSULOSIN HCL Inactive CITALOPRAM HYDROBROMIDE 10 MG ORAL TABLET 1 qDay CITALOPRAM HYDROBROMIDE 10 MG ORAL TABLET 675132 CITALOPRAM HYDROBR OMIDE Inactive Vital Signs Date [...] d blood pressure, diastolic 86 mm[Hg] BP fnuk blood pressure, systolic 125 mm[Hg] BP sys [...] Range Description Office Visit: CN-kidney stone - 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 Patient 19:42:30 CDT Crispin valerio MD [facility] CPT-20861 Level 4 Est. Patient 14:47:35 CDT Rick singh MD [facility] CPT-69638 Level 2 Est. Patient 15:53:54 CDT Crispin valerio MD [facility] CPT-53228 Level 3 Est. Patient 20:49:21 CDT Crispin valerio MD [facility] Procedures Code Procedure Name Date Entry Date Standard Desc ription CPT-33906 Postop F/U Visit 17:29:32 CDT CPT-07837 Abdomen, 1 view 13:47:34 CDT CPT-17709 Abdomen, 1 view 13:56:21 CDT CPT-55674 Postop F/U Visit 10:40:02 CDT CPT-15977 Bladder Scan 15:53:55 CDT CPT-16213 Bladder Scan 10:11:31 CDT CPT-13606 Postop F/U Visit 10:11:30 CDT CPT-66090 Cystoscopy 20:49:21 CDT CPT-34528 Abd single AP View - XRAY USE ONLY 12:03:21 CDT
--- OUTSIDE RECORDS SUMMARY | 2020-01-01 12:56 | XMS REPORT | Clinical Summary ---
Author Author Admin, Ken Walsh [employer] Address Unknown Phone Unavailable Allergies, Adverse Reactions, [...] TABLET 1 tablet by mouth daily LORATADINE 51250753921 Active Crispin Smith MD Active HYDROCHLOROTHIAZIDE 25 MG ORAL TABLET 1/2 tablet by mouth daily 201 02/02/21 HYDROCHLOROTHIAZIDE 26389358094 Active Crispin Smith MD A ctive CYPROHEPTADINE HCL 4 MG ORAL TABLET 1/2 tab by mouth at bedt melissa fpr frequency CYPROHEPTADINE HCL 57496145314 Active Crispin Swain Active CITALOPRAM HYDROBROMIDE 10 MG ORAL TABLET 1 qDay CITALOPRAM HYDROBROMIDE 18754887871 No Longer Active Crispin Smith MD Active GABAPENTIN 300 MG ORAL CAPSULE by mouth twice a day GABAPENTIN 28086014977 Active Rick Cutler MD Active FLOMAX 0.4 MG ORAL CAPSULE 1 Daily TAMSULOSI N HCL 12626827375 No Longer Active Crispin Smith MD Active LISINOPRIL 20 MG ORAL TABLET 1 tablet by mouth daily LISINOPRIL 14589838627 Active Crispin Smith MD Active ALPRAZOLAM 0.25 MG ORAL TABLET 1 tablet by mouth twice a day as needed for stress ALPRAZOLAM 89499220555 Active Crispin Smith MD Active FLOMAX 0.4 MG ORAL CAPSULE 1 Daily F MADINA 0.4 MG ORAL CAPSULE 700738 TAMSULOSIN HCL Inactive CITALOPRAM HYDROBROMIDE 10 MG ORAL TABLET 1 qDay CITALOPRAM HYDROBROMIDE 10 MG ORAL TABLET 362620 CITALOPRAM HYDROBR OMIDE Inactive Vital Signs Date [...] Range Description Office Visit: CN-kidney stone - 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 Patient 19:42:30 CDT Crispin valerio MD [facility] CPT-60086 Level 4 Est. Patient 14:47:35 CDT Rick singh MD [facility] CPT-18834 Level 2 Est. Patient 15:53:54 CDT Crispin valerio MD [facility] CPT-03854 Level 3 Est. Patient 20:49:21 CDT Crispin valerio MD [facility] Procedures Code Procedure Name Date Entry Date Standard Desc ription CPT-83767 Abdomen, 1 view 13:56:21 CDT CPT-89124 Postop F/U Visit 10:40:02 CDT CPT-69807 Bladder Scan 15:53:55 CDT CPT-87046 Bladder Scan 10:11:31 CDT CPT-33349 Postop F/U Visit 10:11:30 CDT CPT-12664 Cystoscopy 20:49:21 CDT CPT-81694 Abd single AP View - XRAY USE ONLY 12:03:21 CDT
--- OUTSIDE RECORDS SUMMARY | 2020-01-01 12:56 | XMS REPORT | Clinical Summary ---
Author Author Admin, Ken Luo Organization [employer] Address Unknown Phone Unavailable Allergies, Adverse Reactions, [...] TABLET 1 tablet by mouth daily LORATADINE 98117246305 Active Crispin Smith MD Active HYDROCHLOROTHIAZIDE 25 MG ORAL TABLET 1/2 tablet by mouth daily 201 02/02/21 HYDROCHLOROTHIAZIDE 53244295810 Active Crispin Smith MD A ctive CYPROHEPTADINE HCL 4 MG ORAL TABLET 1/2 tab by mouth at bedt melissa fpr frequency CYPROHEPTADINE HCL 23548703783 Active Crispin Swain Active CITALOPRAM HYDROBROMIDE 10 MG ORAL TABLET 1 qDay CITALOPRAM HYDROBROMIDE 12939498812 No Longer Active Crispin Smith MD Active GABAPENTIN 300 MG ORAL CAPSULE by mouth twice a day GABAPENTIN 69165997166 Active Rick Cutler MD Active FLOMAX 0.4 MG ORAL CAPSULE 1 Daily TAMSULOSI N HCL 09320742430 No Longer Active Crispin Smith MD Active LISINOPRIL 20 MG ORAL TABLET 1 tablet by mouth daily LISINOPRIL 76454954259 Active Crispin Smith MD Active ALPRAZOLAM 0.25 MG ORAL TABLET 1 tablet by mouth twice a day as needed for stress ALPRAZOLAM 12820153545 Active Crispin Smith MD Active FLOMAX 0.4 MG ORAL CAPSULE 1 Daily F MADINA 0.4 MG ORAL CAPSULE 227232 TAMSULOSIN HCL Inactive CITALOPRAM HYDROBROMIDE 10 MG ORAL TABLET 1 qDay CITALOPRAM HYDROBROMIDE 10 MG ORAL TABLET 139255 CITALOPRAM HYDROBR OMIDE Inactive Vital Signs Date [...] Range Description Office Visit: CN-kidney stone - 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 Patient 19:42:30 CDT Crispin valerio MD [facility] CPT-99977 Level 4 Est. Patient 14:47:35 CDT Rick singh MD [facility] CPT-89131 Level 2 Est. Patient 15:53:54 CDT Crispin valerio MD [facility] CPT-96145 Level 3 Est. Patient 20:49:21 CDT Crispin valerio MD [facility] Procedures Code Procedure Name Date Entry Date Standard Desc ription CPT-89424 Postop F/U Visit 17:29:32 CDT CPT-32188 Abdomen, 1 view 13:47:34 CDT CPT-76796 Abdomen, 1 view 13:56:21 CDT CPT-39396 Postop F/U Visit 10:40:02 CDT CPT-17825 Bladder Scan 15:53:55 CDT CPT-65301 Bladder Scan 10:11:31 CDT CPT-32063 Postop F/U Visit 10:11:30 CDT CPT-44695 Cystoscopy 20:49:21 CDT CPT-02905 Abd single AP View - XRAY USE ONLY 12:03:21 CDT
--- OUTSIDE RECORDS SUMMARY | 2020-01-01 12:56 | XMS REPORT | Clinical Summary ---
Author Author Admin, Ken Walsh [employer] Address Unknown Phone Unavailable Allergies, Adverse Reactions, [...] TABLET 1 tablet by mouth daily LORATADINE 79759299167 Active Crispin Smith MD Active HYDROCHLOROTHIAZIDE 25 MG ORAL TABLET 1/2 tablet by mouth daily 201 02/02/21 HYDROCHLOROTHIAZIDE 68887045966 Active Crispin Smith MD A ctive CYPROHEPTADINE HCL 4 MG ORAL TABLET 1/2 tab by mouth at bedt melissa fpr frequency CYPROHEPTADINE HCL 41156636405 Active Crispin Swain Active CITALOPRAM HYDROBROMIDE 10 MG ORAL TABLET 1 qDay CITALOPRAM HYDROBROMIDE 22701216354 No Longer Active Crispin Smith MD Active GABAPENTIN 300 MG ORAL CAPSULE by mouth twice a day GABAPENTIN 05042506050 Active Rick Cutler MD Active FLOMAX 0.4 MG ORAL CAPSULE 1 Daily TAMSULOSI N HCL 28843486775 No Longer Active Crispin Smith MD Active LISINOPRIL 20 MG ORAL TABLET 1 tablet by mouth daily LISINOPRIL 95103929179 Active Crispin Smith MD Active ALPRAZOLAM 0.25 MG ORAL TABLET 1 tablet by mouth twice a day as needed for stress ALPRAZOLAM 40836236474 Active Crispin Smith MD Active FLOMAX 0.4 MG ORAL CAPSULE 1 Daily F MADINA 0.4 MG ORAL CAPSULE 322264 TAMSULOSIN HCL Inactive CITALOPRAM HYDROBROMIDE 10 MG ORAL TABLET 1 qDay CITALOPRAM HYDROBROMIDE 10 MG ORAL TABLET 668044 CITALOPRAM HYDROBR OMIDE Inactive Vital Signs Date [...] Range Description Office Visit: CN-kidney stone - E D 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 Patient 19:42:30 CDT Crispin valerio MD [facility] CPT-44482 Level 4 Est. Patient 14:47:35 CDT Rick singh MD [facility] CPT-68007 Level 2 Est. Patient 15:53:54 CDT Crispin valerio MD [facility] CPT-23548 Level 3 Est. Patient 20:49:21 CDT Crispin valerio MD [facility] Procedures Code Procedure Name Date Entry Date Standard Desc ription CPT-40618 Postop F/U Visit 17:29:32 CDT CPT-75480 Abdomen, 1 view 13:47:34 CDT CPT-67803 Abdomen, 1 view 13:56:21 CDT CPT-92488 Postop F/U Visit 10:40:02 CDT CPT-20513 Bladder Scan 15:53:55 CDT CPT-72010 Bladder Scan 10:11:31 CDT CPT-03177 Postop F/U Visit 10:11:30 CDT CPT-26201 Cystoscopy 20:49:21 CDT CPT-38729 Abd single AP View - XRAY USE ONLY 12:03:21 CDT
--- OUTSIDE RECORDS SUMMARY | 2020-01-01 12:56 | XMS REPORT | Clinical Summary ---
Author Author Admin, Ken Luo Organization [employer] Address Unknown Phone Unavailable Allergies, Adverse Reactions, [...] CAPSULE by mouth twice a day GABAPENTIN 17240962360 Active Rick Cutler MD Active FLOMAX 0.4 MG ORAL CAPSULE 1 Daily TAMSULOSI N HCL 54560721010 No Longer Active Crispin Smith MD Active LISINOPRIL 20 MG ORAL TABLET 1 tablet by mouth daily LISINOPRIL 88366549480 Active Crispin Smith MD Active CITALOPRAM HYDROBROMIDE 10 MG ORAL TABLET 1 qDay CITALOPRAM HYDROBROMIDE 16598829576 Active Crispin Smith MD Active ALPRAZOLAM 0.25 MG ORAL TABLET 1 tablet by mouth twice a day as needed for stress ALPRAZOLAM 08877505968 Active Crispin Smith MD Active FLOMAX 0.4 MG ORAL CAPSULE 1 Daily F MADINA 0.4 MG ORAL CAPSULE 498200 TAMSULOSIN HCL Inactive Vital Signs Date Name [...] d Encounters Code Encounter Date Provider Facility CPT-93111 Level 4 Est. Patient 14:47:35 CDT [facility] CPT-79919 Level 2 Est. Patient 15:53:54 CDT Crispin [facility]er[facility] CPT-90520 Level 3 Est. Patient 20:49:21 CDT Crispin valerio [facility] Procedures Code Procedure Name Date Entry Date Standard Desc ription CPT-82953 Postop F/U Visit 10:40:02 CDT CPT-11949 Bladder Scan 15:53:55 CDT CPT-60467 Bladder Scan 10:11:31 CDT CPT-55437 Postop F/U Visit 10:11:30 CDT CPT-09587 Cystoscopy 20:49:21 CDT CPT-31815 Abd single AP View - XRAY USE ONLY 12:03:21 CDT
--- OUTSIDE RECORDS SUMMARY | 2020-01-01 12:56 | XMS REPORT | Clinical Summary ---
Author Author Admin, Ken Walsh [employer] Address Unknown Phone Unavailable Allergies, Adverse Reactions, [...] TABLET 1 tablet by mouth daily LORATADINE 75593902235 Active Crispin Smith MD Active HYDROCHLOROTHIAZIDE 25 MG ORAL TABLET 1/2 tablet by mouth daily 201 02/02/21 HYDROCHLOROTHIAZIDE 26299284423 Active Crispin Gautam ctive CYPROHEPTADINE HCL 4 MG ORAL TABLET 1/2 tab by mouth at bedt melissa fpr frequency CYPROHEPTADINE HCL 48306673873 Active Crispin Swain Active CITALOPRAM HYDROBROMIDE 10 MG ORAL TABLET 1 qDay CITALOPRAM HYDROBROMIDE 64627445965 No Longer Active Crispin Smith MD Active GABAPENTIN 300 MG ORAL CAPSULE by mouth twice a day GABAPENTIN 34182258351 Active Rick Cutler MD Active FLOMAX 0.4 MG ORAL CAPSULE 1 Daily TAMSULOSI N HCL 29584195987 No Longer Active Crispin Smith MD Active LISINOPRIL 20 MG ORAL TABLET 1 tablet by mouth daily LISINOPRIL 74701045833 Active Crispin Smith MD Active ALPRAZOLAM 0.25 MG ORAL TABLET 1 tablet by mouth twice a day as needed for stress ALPRAZOLAM 94593221521 Active Crispin Smith MD Active FLOMAX 0.4 MG ORAL CAPSULE 1 Daily F MADINA 0.4 MG ORAL CAPSULE 864342 TAMSULOSIN HCL Inactive CITALOPRAM HYDROBROMIDE 10 MG ORAL TABLET 1 qDay CITALOPRAM HYDROBROMIDE 10 MG ORAL TABLET 664318 CITALOPRAM HYDROBR OMIDE Inactive Vital Signs Date [...] d blood pressure, diastolic 88 mm[Hg] BP fnuk blood pressure, systolic 118 mm[Hg] BP sys [...] Range Description Office Visit: CN-kidney stone - 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 Patient 19:42:30 CDT Crispin valerio MD [facility] CPT-55423 Level 4 Est. Patient 14:47:35 CDT Rick singh MD [facility] CPT-81705 Level 2 Est. Patient 15:53:54 CDT Crispin valerio MD [facility] CPT-73783 Level 3 Est. Patient 20:49:21 CDT Crispin valerio MD [facility] Procedures Code Procedure Name Date Entry Date Standard Desc ription CPT-54667 Abdomen, 1 view 13:47:34 CDT CPT-00107 Abdomen, 1 view 13:56:21 CDT CPT-81294 Postop F/U Visit 10:40:02 CDT CPT-74702 Bladder Scan 15:53:55 CDT CPT-88217 Bladder Scan 10:11:31 CDT CPT-35908 Postop F/U Visit 10:11:30 CDT CPT-77938 Cystoscopy 20:49:21 CDT CPT-38099 Abd single AP View - XRAY USE ONLY 12:03:21 CDT
--- OUTSIDE RECORDS SUMMARY | 2020-01-01 12:56 | XMS REPORT | Clinical Summary ---
Author Author Admin, Ken Walsh [employer] Address Unknown Phone Unavailable Allergies, Adverse Reactions, [...] TABLET 1 tablet by mouth daily LORATADINE 45738024225 Active Crispin mSith MD Active HYDROCHLOROTHIAZIDE 25 MG ORAL TABLET 1/2 tablet by mouth daily 201 02/02/21 HYDROCHLOROTHIAZIDE 08988205475 Active Crispin Smith MD A ctive CYPROHEPTADINE HCL 4 MG ORAL TABLET 1/2 tab by mouth at bedt melissa fpr frequency CYPROHEPTADINE HCL 80856806326 Active Crispin Swain Active CITALOPRAM HYDROBROMIDE 10 MG ORAL TABLET 1 qDay CITALOPRAM HYDROBROMIDE 80924822189 No Longer Active Crispin Smith MD Active GABAPENTIN 300 MG ORAL CAPSULE by mouth twice a day GABAPENTIN 71636117678 Active Rick Cutler MD Active FLOMAX 0.4 MG ORAL CAPSULE 1 Daily TAMSULOSI N HCL 71072111595 No Longer Active Crispin Smith MD Active LISINOPRIL 20 MG ORAL TABLET 1 tablet by mouth daily LISINOPRIL 21827762656 Active Crispin Simth MD Active ALPRAZOLAM 0.25 MG ORAL TABLET 1 tablet by mouth twice a day as needed for stress ALPRAZOLAM 13905768601 Active Crispin Smith MD Active FLOMAX 0.4 MG ORAL CAPSULE 1 Daily F MADINA 0.4 MG ORAL CAPSULE 083245 TAMSULOSIN HCL Inactive CITALOPRAM HYDROBROMIDE 10 MG ORAL TABLET 1 qDay CITALOPRAM HYDROBROMIDE 10 MG ORAL TABLET 199359 CITALOPRAM HYDROBR OMIDE Inactive Vital Signs Date [...] Range Description Office Visit: CN-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 Patient 19:42:30 CDT Crispin valerio MD [facility] CPT-01476 Level 4 Est. Patient 14:47:35 CDT Rick singh MD [facility] CPT-64245 Level 2 Est. Patient 15:53:54 CDT Crispin valerio MD [facility] CPT-98804 Level 3 Est. Patient 20:49:21 CDT Crispin valerio MD [facility] Procedures Code Procedure Name Date Entry Date Standard Desc ription CPT-25161 Postop F/U Visit 17:29:32 CDT CPT-23107 Abdomen, 1 view 13:47:34 CDT CPT-05924 Abdomen, 1 view 13:56:21 CDT CPT-59657 Postop F/U Visit 10:40:02 CDT CPT-42100 Bladder Scan 15:53:55 CDT CPT-80127 Bladder Scan 10:11:31 CDT CPT-08782 Postop F/U Visit 10:11:30 CDT CPT-17535 Cystoscopy 20:49:21 CDT CPT-08560 Abd single AP View - XRAY USE ONLY 12:03:21 CDT
--- OUTSIDE RECORDS SUMMARY | 2020-01-01 12:57 | XMS REPORT | Clinical Summary ---
Author Author Admin, Ken Luo Organization [facility] Address Unknown Phone Unavailable Allergies, Adverse Reactions, Alerts Allergy Name Reaction Description Start Date Severity Status Pr ovider Allergies Unknown Conditions or Problems Problem Name Problem Code Onset Date Status Entry Date Provider Comment Standard Description Annotate Problems Unknown Active Medication List Medication Instructions Start Date Stop Date Generic Name NDC Status Provider Patient Instruction Drug Treatment Unknown - unknown Procedures Code Procedure Name Date Entry Date Standard Desc ription CPT-99179 Abd single AP View - XRAY USE ONLY 12:03:21 CDT
--- OUTSIDE RECORDS SUMMARY | 2020-01-01 12:57 | XMS REPORT | Clinical Summary ---
Author Author Admin, Kne Luo Organization [employer] Address Unknown Phone Unavailable Allergies, Adverse Reactions, [...] TABLET 1 tablet by mouth daily LORATADINE 03901876412 Active Crispin Smith MD Active HYDROCHLOROTHIAZIDE 25 MG ORAL TABLET 1/2 tablet by mouth daily 201 02/02/21 HYDROCHLOROTHIAZIDE 15626991575 Active Crispin Smith MD A ctive CYPROHEPTADINE HCL 4 MG ORAL TABLET 1/2 tab by mouth at bedt melissa fpr frequency CYPROHEPTADINE HCL 16989165613 Active Crispin Swain Active CITALOPRAM HYDROBROMIDE 10 MG ORAL TABLET 1 qDay CITALOPRAM HYDROBROMIDE 12530976020 No Longer Active Crispin Smith MD Active GABAPENTIN 300 MG ORAL CAPSULE by mouth twice a day GABAPENTIN 49156638791 Active Rick Cutler MD Active FLOMAX 0.4 MG ORAL CAPSULE 1 Daily TAMSULOSI N HCL 64155516744 No Longer Active Crispin Smith MD Active LISINOPRIL 20 MG ORAL TABLET 1 tablet by mouth daily LISINOPRIL 61804395118 Active Crispin Smith MD Active ALPRAZOLAM 0.25 MG ORAL TABLET 1 tablet by mouth twice a day as needed for stress ALPRAZOLAM 54023900674 Active Crispin Smith MD Active FLOMAX 0.4 MG ORAL CAPSULE 1 Daily F MADINA 0.4 MG ORAL CAPSULE 942868 TAMSULOSIN HCL Inactive CITALOPRAM HYDROBROMIDE 10 MG ORAL TABLET 1 qDay CITALOPRAM HYDROBROMIDE 10 MG ORAL TABLET 857428 CITALOPRAM HYDROBR OMIDE Inactive Vital Signs Date [...] Range Description Office Visit: CN-kidney stone - 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 Patient 19:42:30 CDT Crispin valerio MD [facility] CPT-95657 Level 4 Est. Patient 14:47:35 CDT Rick singh MD [facility] CPT-65822 Level 2 Est. Patient 15:53:54 CDT Crispin valerio MD [facility] CPT-13090 Level 3 Est. Patient 20:49:21 CDT Crispin valerio MD [facility] Procedures Code Procedure Name Date Entry Date Standard Desc ription CPT-85817 Postop F/U Visit 17:29:32 CDT CPT-63451 Abdomen, 1 view 13:47:34 CDT CPT-54649 Abdomen, 1 view 13:56:21 CDT CPT-56664 Postop F/U Visit 10:40:02 CDT CPT-41032 Bladder Scan 15:53:55 CDT CPT-16624 Bladder Scan 10:11:31 CDT CPT-73731 Postop F/U Visit 10:11:30 CDT CPT-01468 Cystoscopy 20:49:21 CDT CPT-51730 Abd single AP View - XRAY USE ONLY 12:03:21 CDT
--- OUTSIDE RECORDS SUMMARY | 2020-01-01 12:57 | XMS REPORT | Clinical Summary ---
Author Author Admin, Ken Luo Organization [employer] Address Unknown Phone Unavailable Allergies, Adverse Reactions, [...] CAPSULE by mouth twice a day GABAPENTIN 67861379674 Active Rick Cutler MD Active FLOMAX 0.4 MG ORAL CAPSULE 1 Daily TAMSULOSI N HCL 09514737156 No Longer Active Crispin Smith MD Active LISINOPRIL 20 MG ORAL TABLET 1 tablet by mouth daily LISINOPRIL 66941354755 Active Crispin Smith MD Active CITALOPRAM HYDROBROMIDE 10 MG ORAL TABLET 1 qDay CITALOPRAM HYDROBROMIDE 18811534938 Active Crispin Smith MD Active ALPRAZOLAM 0.25 MG ORAL TABLET 1 tablet by mouth twice a day as needed for stress ALPRAZOLAM 07753192711 Active Crispin Smith MD Active FLOMAX 0.4 MG ORAL CAPSULE 1 Daily F MADINA 0.4 MG ORAL CAPSULE 407689 TAMSULOSIN HCL Inactive Vital Signs Date Name [...] d Encounters Code Encounter Date Provider Facility CPT-70944 Level 3 Est. Patient 19:42:30 CDT Crispin valerio MD [facility] CPT-87026 Level 4 Est. Patient 14:47:35 CDT Rick singh MD [facility] CPT-45406 Level 2 Est. Patient 15:53:54 CDT Crispin valerio MD [facility] CPT-54629 Level 3 Est. Patient 20:49:21 CDT Crispin valerio MD [facility] Procedures Code Procedure Name Date Entry Date Standard Desc ription CPT-70208 Abdomen, 1 view 13:56:21 CDT CPT-21256 Postop F/U Visit 10:40:02 CDT CPT-22634 Bladder Scan 15:53:55 CDT CPT-73907 Bladder Scan 10:11:31 CDT CPT-96014 Postop F/U Visit 10:11:30 CDT CPT-60055 Cystoscopy 20:49:21 CDT CPT-52783 Abd single AP View - XRAY USE ONLY 12:03:21 CDT
--- OUTSIDE RECORDS SUMMARY | 2020-01-01 12:57 | XMS REPORT | Clinical Summary ---
Author Author Admin, Ken Walsh [employer] Address Unknown Phone Unavailable Allergies, Adverse Reactions, [...] TABLET 1 tablet by mouth daily LORATADINE 09382626224 Active Crispin Smith MD Active HYDROCHLOROTHIAZIDE 25 MG ORAL TABLET 1/2 tablet by mouth daily 201 02/02/21 HYDROCHLOROTHIAZIDE 13607315328 Active Crispin Smith MD A ctive CYPROHEPTADINE HCL 4 MG ORAL TABLET 1/2 tab by mouth at bedt melissa fpr frequency CYPROHEPTADINE HCL 45107766111 Active Crispin Swain Active CITALOPRAM HYDROBROMIDE 10 MG ORAL TABLET 1 qDay CITALOPRAM HYDROBROMIDE 31693977034 No Longer Active Crispin Smith MD Active GABAPENTIN 300 MG ORAL CAPSULE by mouth twice a day GABAPENTIN 76693605564 Active Rick Cutler MD Active FLOMAX 0.4 MG ORAL CAPSULE 1 Daily TAMSULOSI N HCL 34209304543 No Longer Active Crispin Smith MD Active LISINOPRIL 20 MG ORAL TABLET 1 tablet by mouth daily LISINOPRIL 16630340863 Active Crispin Smith MD Active ALPRAZOLAM 0.25 MG ORAL TABLET 1 tablet by mouth twice a day as needed for stress ALPRAZOLAM 52475868505 Active Crispin Smith MD Active FLOMAX 0.4 MG ORAL CAPSULE 1 Daily F MADINA 0.4 MG ORAL CAPSULE 343700 TAMSULOSIN HCL Inactive CITALOPRAM HYDROBROMIDE 10 MG ORAL TABLET 1 qDay CITALOPRAM HYDROBROMIDE 10 MG ORAL TABLET 529301 CITALOPRAM HYDROBR OMIDE Inactive Vital Signs Date [...] Range Description Office Visit: CN-kidney stone - 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 Patient 19:42:30 CDT Crispin valerio MD [facility] CPT-50983 Level 4 Est. Patient 14:47:35 CDT Rick singh MD [facility] CPT-58753 Level 2 Est. Patient 15:53:54 CDT Crispin valerio MD [facility] CPT-11341 Level 3 Est. Patient 20:49:21 CDT Crispin valerio MD [facility] Procedures Code Procedure Name Date Entry Date Standard Desc ription CPT-10074 Postop F/U Visit 17:29:32 CDT CPT-80944 Abdomen, 1 view 13:47:34 CDT CPT-79859 Abdomen, 1 view 13:56:21 CDT CPT-78435 Postop F/U Visit 10:40:02 CDT CPT-72339 Bladder Scan 15:53:55 CDT CPT-54477 Bladder Scan 10:11:31 CDT CPT-15357 Postop F/U Visit 10:11:30 CDT CPT-16749 Cystoscopy 20:49:21 CDT CPT-03804 Abd single AP View - XRAY USE ONLY 12:03:21 CDT
--- OUTSIDE RECORDS SUMMARY | 2020-01-01 12:57 | XMS REPORT | Clinical Summary ---
Author Author Admin, Ken Luo Organization [employer] Address Unknown Phone Unavailable Allergies, Adverse Reactions, [...] CAPSULE by mouth twice a day GABAPENTIN 32915475102 Active Rick Cutler MD Active FLOMAX 0.4 MG CAPS 1 Daily TAMSULOSIN HCL 5456 8926086 No Longer Active Crispin Smith MD Active LISINOPRIL 20 MG TABS 1 tablet by mouth daily LISINOPRIL 24478657493 Active Crispin Smith MD Active CITALOPRAM HYDROBROMIDE 10 MG TABS 1 qDay C ITALOPRAM HYDROBROMIDE 01081545469 Active Crispin Smith MD Active ALPRAZOLAM 0.25 MG TAB 1 tablet by mouth twice a day as need ed for stress ALPRAZOLAM 55867945117 Active Crispin Smith MD Active FLOMAX 0.4 MG CAPS 1 Daily FLOMAX 0.4 MG CAPS 883229 TAMSULOSIN HCL Inactive Vital Signs Date Name [...] d Encounters Code Encounter Date Provider Facility CPT-26903 Level 4 Est. Patient 14:47:35 CDT Rick singh MD [facility] CPT-86454 Level 2 Est. Patient 15:53:54 CDT Crispin valerio MD [facility] CPT-21278 Level 3 Est. Patient 20:49:21 CDT Crispin valerio MD [facility] Procedures Code Procedure Name Date Entry Date Standard Desc ription CPT-95072 Postop F/U Visit 10:40:02 CDT CPT-22953 Bladder Scan 15:53:55 CDT CPT-76215 Bladder Scan 10:11:31 CDT CPT-37600 Postop F/U Visit 10:11:30 CDT CPT-69768 Cystoscopy 20:49:21 CDT CPT-05811 Abd single AP View - XRAY USE ONLY 12:03:21 CDT
--- OUTSIDE RECORDS SUMMARY | 2020-01-01 12:57 | XMS REPORT | Clinical Summary ---
Author Author Admin, Ken Walsh [employer] Address Unknown Phone Unavailable Allergies, Adverse Reactions, [...] at bedt melissa fpr frequency CYPROHEPTADINE HCL 89970063991 No Longer Active Rick Cutler MD Active VITAMIN D (CHOLECALCIFEROL) 1000 UNIT ORAL CAPSULE 1 cap by mouth daily CHOLECALCIFEROL 12625698526 Active Crispin Smith MD Active HYDROCHLOROTHIAZIDE 25 MG ORAL TABLET 1/2 tablet by mouth daily HYDROCHLOROTHIAZIDE 60533971552 No Longer Active Crispin Smith MD Active BACLOFEN 10 MG ORAL TABLET 1 tab by mouth three times daily BACLOFEN 21004703894 Active Crispin Smith MD Active TEGRETOL-XR 200 MG ORAL TABLET EXTENDED RELEASE 12 CHRISTIANO R 1 tab by mouth twice daily CARBAMAZEPINE 73299559423 Active Crispin Smith MD Active LORATADINE 10 MG ORAL TABLET 1 tablet by mouth daily LORATADINE 34336524001 Active Crispin Smith MD Active CITALOPRAM HYDROBROMIDE 10 MG ORAL TABLET 1 qDay CITALOPRAM HYDROBROMIDE 69598890559 No Longer Active Crispin Smith MD Active GABAPENTIN 300 MG ORAL CAPSULE by mouth twice a day GABAPENTIN 52870099492 Active Rick Cutler MD Active FLOMAX 0.4 MG ORAL CAPSULE 1 Daily TAMSULOSI N HCL 03772856417 No Longer Active Crispin Smith MD Active LISINOPRIL 20 MG ORAL TABLET 1 tablet by mouth daily LISINOPRIL 46456256837 Active Crispin Smith MD Active ALPRAZOLAM 0.25 MG ORAL TABLET 1 tablet by mouth twice a day as needed for stress ALPRAZOLAM 98202368485 Active Crsipin Smith MD Active FLOMAX 0.4 MG ORAL CAPSULE 1 Daily F MADINA 0.4 MG ORAL CAPSULE 373852 TAMSULOSIN HCL Inactive CITALOPRAM HYDROBROMIDE 10 MG ORAL TABLET 1 qDay CITALOPRAM HYDROBROMIDE 10 MG ORAL TABLET 385787 CITALOPRAM HYDROBR OMIDE Inactive HYDROCHLOROTHIAZIDE 25 MG ORAL TABLET 1/2 tablet by mouth daily HYDROCHLOROTHIAZIDE 25 MG ORAL TABLET 841393 HYDROCHLOR OTHIAZIDE Inactive CYPROHEPTADINE HCL 4 MG ORAL TABLET 1/2 tab by mouth at bedt melissa fpr frequency CYPROHEPTADINE HCL 4 MG ORAL TABLET 299261 CYPROHEPTADINE HCL Inactive Vital Signs Date Name [...] Range Description 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 Patient 19:42:30 CDT Crispin valerio MD [facility] CPT-16270 Level 4 Est. Patient 14:47:35 CDT Rick singh MD [facility] CPT-66385 Level 2 Est. Patient 15:53:54 CDT Crispin valerio MD [facility] CPT-92804 Level 3 Est. Patient 20:49:21 CDT Crispin valerio MD [facility] Procedures Code Procedure Name Date Entry Date Standard Desc ription CPT-00556 No Charge Offi Visit 12:45:26 CDT 3 CPT-88736 Postop F/U Visit 12:24:03 CDT CPT-68968 Abdomen, 1 view 10:02:40 CDT CPT-00287 Postop F/U Visit 17:29:32 CDT CPT-24267 Abdomen, 1 view 13:47:34 CDT CPT-25292 Abdomen, 1 view 13:56:21 CDT CPT-63879 Postop F/U Visit 10:40:02 CDT CPT-71908 Bladder Scan 15:53:55 CDT CPT-44924 Bladder Scan 10:11:31 CDT CPT-71996 Postop F/U Visit 10:11:30 CDT CPT-25621 Cystoscopy 20:49:21 CDT CPT-09464 Abd single AP View - XRAY USE ONLY 12:03:21 CDT
[2020-01-01] MEDS ORDERED: TRANEXAMIC ACID INJECTION 1,000 MG in NS (IVPB) 100 ML IV ONE (13:00)
[2020-01-01] MEDS ORDERED: TRANEXAMIC ACID INJECTION 1,000 MG in NS (IVPB) 250 ML IV SCH (13:00)
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
[2020-01-01 13:10] LABS: BILIRUBIN,URINE NEGATIVE (NEGATIVE); CLARITY,URINE CLEAR; COLOR,URINE YELLOW; GLUCOSE, URINE (UA) NEGATIVE (NEGATIVE); KETONES,URINE 1+ (NEGATIVE); LEUKOCYTE ESTERASE ,URINE NEGATIVE (NEGATIVE); NITRITE,URINE NEGATIVE (NEGATIVE); PH,URINE 5.5 (5-9); PROTEIN,URINE NEGATIVE (NEGATIVE)
[2020-01-01 13:42] LABS: AMORPHOUS SEDIMENT,UR RARE AMOR URATES /LPF; BACTERIA,URINE TRACE /HPF; RBC,URINE 0-2 /HPF; WBC,URINE 0-2 /HPF
[2020-01-01] MEDS ORDERED: fentaNYL INJECTION 100 MCG/2 ML AMP ONE (13:49)
[2020-01-01] MEDS ORDERED: fentaNYL INJECTION 100 MCG/2 ML AMP IVP ONE (14:00)
[2020-01-01 14:05] VITALS: BP 136/91
== END 2020-01-01 14:05 | disposition short-term general hospital (02) ==
LOC: EDUNIT# 10:57 → ER 10:58
DX: S22.41XA Multiple fractures of ribs, right side, initial encounter for closed fracture (principal); S25.09XA Other specified injury of thoracic aorta, initial encounter; S22.088A Other fracture of T11-T12 vertebra, initial encounter for closed fracture; S02.2XXA Fracture of nasal bones, initial encounter for closed fracture; S01.21XA Laceration without foreign body of nose, initial encounter; S00.81XA Abrasion of other part of head, initial encounter; E78.00 Pure hypercholesterolemia, unspecified; K76.9 Liver disease, unspecified; V43.52XA Car driver injured in collision with other type car in traffic accident, initial encounter; Z23 Encounter for immunization
CPT/HCPCS: 70450; 70486; 71045; 71260; 72125; 72170; 74177; 80048; 80076; 81000; 85027; 90471; 93041; 96365; 96375; 99285; G0480; 36415; 80320; 90715